=== PATIENT | female | born 1955 | race Caucasian/White ===

== ENCOUNTER 2017-11-27 11:36 | Inpatient (IN) | payer MEDICARE ==
[~2017-11-27] VITALS: Ht 154.9 cm; Wt 68.9 kg
[~2017-11-27 11:36] MED LIST: ADULT LOW DOSE81 MG PO; ADVAIR 250-501 EACH IH; ADVAIR 500-501 EACH INH; ADVAIR HFA 230M12 GM INH; ALBUTEROL2.5 MG/0.5 IH; AUGMENTIN 875875 M1 PO; AZITHROMYCIN 2250 MG PO; CALCIUM 500 +1 EAC5 PO; CEFDINIR300 MG PO; DETROL LA4 MG PO; DIOVAN HCT 1601 EACH PO; FISH OIL 1,4001 EACH PO; FLEET ENEMA118 ML RC; HYDROCODON-ACE1 EAC7 PO; HYDROCODONE-AP1 EAC6 PO; IBUPROFEN 800800 M1 PO; LEVAQUIN 750 M750 MG PO; LIPITOR20 MG PO; MACROBID 100 M100 M1 PO; MIRALAX255 GM PO; MUCINEX TA600 MG/TA1 PO; MULTIVITAMINS PO; NEXIUM40 MG PO; NYSTATIN 1100000 U/M SW&SWALLOW; ONDANSETRON HCL4 M2 PO; OXYBUTYNIN 5 MG5 M2 PO; Omega 3 PO; PAROXETINE HCL20 MG PO; POLYETHYLENE GLY PO; PREDNISONE 10 M10 MG PO; PREDNISONE10 MG PO; PROAIR HFA8.5 GM IH; PROAIR HFA8.5 GM INH; PROTONIX 20 MG20 M1 PO; SINGULAIR 10 MG10 M1 PO; SPIRIVA INH; VITAMIN E400 UNI7 PO; VITAMIN E800 UNIT; VITAMINC500 PO
[2017-11-27 11:40] VITALS: BP 172/73
[2017-11-27 12:21] LABS: HEMATOCRIT 42.1 % (37.0-47.0); HEMOGLOBIN 13.8 gm/dL (12.0-15.0); MCH 29.5 pg (26.0-34.0); MCHC 32.7 g/dL (28.0-37.0); MCV 90.3 fL (80.0-100.0); MPV 7.8 fl. (7.2-11.1); NUCLEATED RBCS 0 /100WBC; PLATELET COUNT* 261 thou/uL (150-400); RBC 4.66 mil/uL (4.20-5.00); RDW-CV 13.7 % (10.5-14.5); WBC 17.5 thou/uL (4.0-11.0)
[2017-11-27 12:31] LABS: APTT 24.1 Seconds (25.0-31.3); PROTIME 9.9 Seconds (9.20-11.50)
[2017-11-27 12:32] LABS: ANION GAP 8 mmol/L (7-16); BUN 14 mg/dL (7-18); CALCIUM 8.7 mg/dL (8.5-10.1); CHLORIDE 99 mmol/L (98-107); CO2 32 mmol/L (21-32); CREATININE 0.8 mg/dL (0.6-1.3); GLUCOSE 139 mg/dL (70-99); POTASSIUM 4.1 mmol/L (3.5-5.1); SODIUM 139 mmol/L (136-145)
[2017-11-27 12:46] LABS: ALBUMIN 3.8 g/dL (3.4-5.0); ALKALINE PHOSPHATASE 68 U/L (46-116); LIPASE 163 U/L (73-393); MAGNESIUM 2.1 mg/dL (1.8-2.4); NT-PRO BRAIN NAT PEPTIDE 250 pg/mL (<300); SGOT 24 U/L (15-37); SGPT 36 U/L (30-65); TOTAL BILIRUBIN 0.6 mg/dL (<0.1-1.0); TOTAL PROTEIN 6.9 g/dL (6.4-8.2); TROPONIN-I LEVEL <0.06 ng/mL (<0.06)
[2017-11-27 13:20] LABS: ABSOLUTE LYMPHOCYTES 0.9 thou/uL (0.8-5.3); ABSOLUTE NEUTROPHILS 16.6 thou/uL (1.6-8.1)
[2017-11-27 13:21] LABS: PLATELET ESTIMATE ADEQUATE
[2017-11-27 14:26] VITALS: BP 142/79
[2017-11-27 14:50] VITALS: BP 162/79
--- NOTE | 2017-11-27 16:30 | NUR ---
ASSUMED CARES OF PT FROM E.DWellington AT 1435. PT AMBULATED FROM COT TO BED. PT A&O X4, PT UP STEADY, STRONG GAIT, UP INDEPENDENTLY. O2 NC 5L, VSS ON 5L O2, PT OCC. HYPERTENSIVE, 162/79. HRRR PER AUSCULTATION, LUNG SOUNDS DIMINISHED TO CLEAR. LAST BM TODAY. SKIN INTACT, PERRLA, AFEBRILE. SCATTERED BRUISING AND SCARS. LEFT AC PATENT TO FLUSH. PT DENIES PAIN AT THIS TIME. PT LIVES ALONE IN OWN HOME, DAUGHTER AT BEDSIDE. REGULAR DIET. ADMITTED FOR COPD EXACERBATION, SOB AND BRONCHITITIS. PT WEARS O2 AT HOME AND HAS PERSONAL OXYGEN TANK FROM HOME WITH HER. BOWEL SOUNDS ACTIVE 4 QUANDRANTS, NO N/V/D REPORTED. NO COUGH REPORTED BY PT AND DAUGHTER. ABD SOFT, NON TENDER TO PALPATION. ADMISSION COMPLETED. MEDS STARTED. HOURLY ROUNDING TO CONTINUE. WILL CONTINUE TO MONITOR PT STATUS AND COMFORT.
--- NOTE | 2017-11-27 18:58 | NUR ---
REPORT TO BE GIVEN TO DIALYSIS TECH FOR CONTINUED CARES. PT REMAINS STABLE, SITTING IN BED, UP INDEPENDENT. PT TOLERATING IV ABT'S. HOURYLY ROUNDING COMPLETED. PT PROGRESSING TOWARDS GOAL.
[2017-11-27 20:40] VITALS: BP 116/77
[2017-11-28 03:50] LABS: HEMATOCRIT 39.9 % (37.0-47.0); HEMOGLOBIN 13.4 gm/dL (12.0-15.0); MCH 29.7 pg (26.0-34.0); MCHC 33.5 g/dL (28.0-37.0); MCV 88.9 fL (80.0-100.0); MPV 7.9 fl. (7.2-11.1); RBC 4.49 mil/uL (4.20-5.00); RDW-CV 13.6 % (10.5-14.5); WBC 8.8 thou/uL (4.0-11.0)
[2017-11-28 04:05] LABS: CREATININE 0.8 mg/dL (0.6-1.3); MAGNESIUM 2.3 mg/dL (1.8-2.4); POTASSIUM 4.8 mmol/L (3.5-5.1)
--- NOTE | 2017-11-28 06:53 | NUR ---
PT SLEPT ON AND OFF THIS SHIFT. ASSESSMENT DOCUMENTED. MEDS GIVEN PER E-MAR. IV PATENT. NO REPORTS OF PAIN OR NAUSEA. NO CONCERNS AT THIS TIME, WILL CONTINUE WITH PLAN OF CARE.
[2017-11-28 08:18] VITALS: BP 120/81
--- NOTE | 2017-11-28 12:04 | EKG ---
[place] [address] ELECTROCARDIOGRAM REPORT Name: PRICILA YOUNG Room: [address] IN ..#: [id number] Admission: 11/27/17 Attend Phys: Elian Vazquez, Discharge: Date of : 55 Report #: [id number] THIS REPORT FOR: //name// [facility] ED Test Date: 2017-11-27 Test Time: 11:44:05 Pat Name: PRICILA YOUNG Department: Room: Gender: F Director Intelligence Analysis Programs: [place] : 1955 Requested By: Bhargav Ruby Order Number: [id number] MD: Zeyad Martel Measurements Intervals [place] Rate: 97 P: 100 NE: 128 QRS: 82 QRSD: 95 T: -1 QT: 335 QTc: 426 Interpretive Statements Pacemaker spikes or artifacts Sinus rhythm Probable left atrial enlargement Borderline right axis deviation Minimal ST depression, inferior leads Baseline wander in lead(s) V1 Compared to ECG 02/12/2017 11:53:20 ST (T wave) deviation now present Sinus tachycardia no longer present Early repolarization no longer present Electronically Signed On 11-28-2017 12:04:17 CDT by Zeyad Martel [email or web address] <ELECTRONICALLY SIGNED> By: Guicho Martel MD, [facility] 11/28/17 1204 1144 1144 Guicho Martel MD, [facility] /EPI
--- NOTE | 2017-11-28 14:23 | NUR ---
ASSUMED CARES OF PT AT 0700. PT IN BED, BED IN LOW LOCKED POSITION, CALL BUTTON AND PERSONAL ITEMS IN PT REACH. PT UP INDEPENDENTLY, STRONG/STURDY GAIT. A&O X4, HRRR PER AUSCULTATION, VSS ON 5L O2 NC, AFEBRILE, PERRLA, SKIN INTACT, PT COOPERATIVE, PLEASANT, TAKES MED WELL PO. LAST BM 11/26/17. PT FROM HOME WHERE SHE LIVES ALONE AND USES O2 AT HOME 3-4 LITERS. PULSES RADIAL AND PEDAL WNL. NO EDEMA NOTED. LUNG SOUNDS DIMINISHED VIA AUSCULTATION. LEFT AC IV PATENT WITH ABT'S INFUSING, TOLERATED, NO AVR. PT DENIES PAIN AT THIS TIME DURING THIS SHIFT. ABD SOFT/NON TENDER TO PALPATION, PT DENIES N/V/D. GOOD APPETITE AT MEALS. PT PROGRESSING TOWARDS GOAL. HOURLY ROUNDING CONTINUES. WILL CONTINUE TO MONITOR PT PROGRESS AND STATUS.
[2017-11-28 15:51] VITALS: BP 149/82
--- NOTE | 2017-11-28 19:49 | NUR ---
REPORT TO WAFER FAB TECHNICIAN FOR CONTINUED CARES. PT PROGRESSING TOWARDS GOAL. HOURLY ROUNDING COMPLETED. PT STABLE ON 5L O2 NC. PT UP INDEPENDENTLY. PT VERY COOPERATIVE AND PLEASANT, GOOD ATTITUDE. LUNGS STILL TIGHT/DIMINISHED PER AUSCULTATION. IV IN LEFT AC PATENT TO FLUSH. IV ABT TOLERATED, NO AVR. PT PRESENTLY IN BED WATCHING TV.
[2017-11-28 20:15] VITALS: BP 152/81
[2017-11-29 03:58] LABS: HEMATOCRIT 40.7 % (37.0-47.0); HEMOGLOBIN 13.3 gm/dL (12.0-15.0); MCH 29.4 pg (26.0-34.0); MCHC 32.7 g/dL (28.0-37.0); MCV 89.7 fL (80.0-100.0); MPV 7.7 fl. (7.2-11.1); RBC 4.54 mil/uL (4.20-5.00); RDW-CV 13.8 % (10.5-14.5); WBC 14.4 thou/uL (4.0-11.0)
[2017-11-29 04:20] LABS: CALCIUM 9.1 mg/dL (8.5-10.1); CREATININE 0.9 mg/dL (0.6-1.3); MAGNESIUM 2.3 mg/dL (1.8-2.4); POTASSIUM 5.3 mmol/L (3.5-5.1)
--- NOTE | 2017-11-29 05:51 | NUR ---
PATIENT SLEPT MOST OF THE NIGHT. IV REMAINS SALINE LOCKED. IV ANTIBITOICS WERE GIVEN ORDERED. PATIENT REMAIN ON OXYGEN AT 4L PER NASAL CANNULA. PATIENT HAD NO COMPLAINTS OF PAIN. WILL CONTINUE TO MONITOR.
[2017-11-29 09:32] VITALS: BP 147/82
--- NOTE | 2017-11-29 13:38 | NUR ---
CM SPOKE TO THE PATIENT TO DISCUSS HOME SITUAION, DISCHARGE PLANNING, AND TO INFORM OF THE ROLE OF CM. PATIENT ALERT ORIENTED AND INDEPENDENT WITH ADL'S. PATIENT RESIDES AT HOME ALONE. PATIENT USES CONTINUOUS O2 AND A NEBULIZER AT HOME. PATIENT OWNS A WALKER, BUT DOES NOT USE IT. PATIENT USES A SCOOTER IN THE COMMUNITY. EVELYNE HAS NO HX OF OR SNF. CM WILL REMAIN AVAILABLE TO KELSY AND FOLLOW NEEDED.
[2017-11-29 16:00] VITALS: BP 145/84
--- NOTE | 2017-11-29 17:19 | NUR ---
ASSUMED CARE OF PATIENT AFTER MORNING REPORT. ALERT AND ORIENTED X4. ASSESSMENT COMPLETED AND CHARTED. VSS ON 4 LITERS 02. PATIENT HAS HAD NO COMPLAINTS OF PAIN OR NAUSEA THIS SHIFT. SOME COMPLAINTS OF SOA UPON EXERTION BUT RESOLVES QUICKLY WITH REST. PATIENT HAD IV SOLUMEDROL AND ANTIBIOTICS THIS MORNING. IV WAS LEAKING AND ATTEMPT AT NEW ACCESS FAILED. DR WHITMAN CHANGED ORDERS TO PO AND IV ACCESS WAS LEFT OUT. PATIENT RESTING COMFORTABLY IN BED AT THIS TIME. HOURLY ROUNDING MAINTAINED, CALL LIGHT IS WITHIN REACH AND NURSING WILL CONTINUE TO MONITOR.
[2017-11-29 20:00] VITALS: BP 129/93
[2017-11-30 00:14] VITALS: BP 125/89
[2017-11-30 04:17] LABS: ABSOLUTE NEUTROPHILS 8.6 thou/uL (1.6-8.1); BASOPHILS 0.1 %; EOSINOPHILS 0.1 %; HEMATOCRIT 40.5 % (37.0-47.0); HEMOGLOBIN 13.2 gm/dL (12.0-15.0); LYMPHOCYTES 17.3 %; MCH 29.3 pg (26.0-34.0); MCHC 32.6 g/dL (28.0-37.0); MCV 90.1 fL (80.0-100.0); MONOCYTES 8.5 %; MPV 7.8 fl. (7.2-11.1); NUCLEATED RBCS 0 /100WBC; PLATELET COUNT* 247 thou/uL (150-400); RDW-CV 13.9 % (10.5-14.5); WBC 11.7 thou/uL (4.0-11.0)
[2017-11-30 04:34] LABS: CALCIUM 8.8 mg/dL (8.5-10.1); CREATININE 0.8 mg/dL (0.6-1.3); POTASSIUM 4.8 mmol/L (3.5-5.1)
--- NOTE | 2017-11-30 05:18 | NUR ---
ASSUMED CARE OF PT AT 1900 ALERT AND ORIENTED X4 VS AND ASSESSMENT STABLE. PT VOICED NO COMPLAINTS AND SLEPT THROUGH THE NIGHT WILL CONTINUE PLAN OF CARE.
[2017-11-30 08:00] VITALS: BP 133/79
[2017-11-30 09:58] VITALS: BP 133/79
[2017-11-30] MEDS ORDERED: PROTONIX40 M1 PO (10:23)
[2017-11-30 11:33] VITALS: BP 133/79
--- NOTE | 2017-11-30 11:45 | NUR ---
RECEIVED REPORT FROM LISANDRO URIAS. ASSESSMENT CHARTED. AFEBRILE. PT WILL GO HOME TODAY. MEDS GIVEN. DISCHARGE INSTRUCTIONS GIVEN. SCRIPTS GIVEN. ALL QUESTIONS ANSWRED.
[2017-11-30 12:57] VITALS: BP 133/79
--- NOTE | 2017-11-30 12:58 | NUR ---
PT LEFT UNIT AT 1258 VIA WHEELCHAIR WITH NURSE MARI AND DAUGHTER.
== END 2017-11-30 12:45 | disposition home or self-care (01) | DRG 177 ==
LOC: M.ERS 11:36 → M.TBA-ER 12:54 → M.ORTHSURG 12:54
PROVIDERS: Family Medicine; Internal Medicine; ADMIT Family Medicine
DX: J15.6 Pneumonia due to other Gram-negative bacteria (principal); J96.01 Acute respiratory failure with hypoxia; J44.1 Chronic obstructive pulmonary disease with (acute) exacerbation; J44.0 Chronic obstructive pulmonary disease with (acute) lower respiratory infection; R65.10 Systemic inflammatory response syndrome (SIRS) of non-infectious origin without acute organ dysfunction; D72.829 Elevated white blood cell count, unspecified; I10 Essential (primary) hypertension; F41.9 Anxiety disorder, unspecified; Z98.51 Tubal ligation status; Z90.49 Acquired absence of other specified parts of digestive tract; Z79.899 Other long term (current) drug therapy; Z79.82 Long term (current) use of aspirin; Z99.81 Dependence on supplemental oxygen; Z88.2 Allergy status to sulfonamides; Z88.8 Allergy status to other drugs, medicaments and biological substances; Z87.891 Personal history of nicotine dependence

== ENCOUNTER 2018-01-19 09:32 | Inpatient (IN) | payer MEDICARE ==
[~2018-01-19] VITALS: Ht 157.5 cm; Wt 67.1 kg
[~2018-01-19 09:32] MED LIST changes: +PROTONIX40 M1 PO
[2018-01-19 09:34] VITALS: BP 133/70
[2018-01-19] MEDS ORDERED: TUMS PO (09:46)
[2018-01-19] MEDS ORDERED: STOOL SOFTENER1 EAC2 PO (09:47)
[2018-01-19] MEDS ORDERED: VIT C-ROSE HIP500 MG PO (09:47)
[2018-01-19] MEDS ORDERED: OXYGEN MISCELL (09:47)
[2018-01-19 09:50] LABS: HEMOGLOBIN 14.9 gm/dL (12.0-15.0); MCH 30.1 pg (26.0-34.0); MCHC 33.2 g/dL (28.0-37.0); MCV 90.7 fL (80.0-100.0); MPV 8.5 fl. (7.2-11.1); NUCLEATED RBCS 0 /100WBC; PLATELET COUNT* 290 thou/uL (150-400); RBC 4.97 mil/uL (4.20-5.00); RDW-CV 13.9 % (10.5-14.5); WBC 24.2 thou/uL (4.0-11.0)
[2018-01-19 10:07] LABS: ANION GAP 7 mmol/L (7-16); BUN 11 mg/dL (7-18); CALCIUM 9.2 mg/dL (8.5-10.1); CHLORIDE 98 mmol/L (98-107); CO2 32 mmol/L (21-32); CREATININE 0.8 mg/dL (0.6-1.3); GLUCOSE 142 mg/dL (70-99); POTASSIUM 3.6 mmol/L (3.5-5.1); SODIUM 137 mmol/L (136-145)
[2018-01-19 10:24] LABS: ABSOLUTE LYMPHOCYTES 0.7 thou/uL (0.8-5.3); ABSOLUTE MONOCYTES 2.4 thou/uL (0.0-1.2); ABSOLUTE NEUTROPHILS 21.1 thou/uL (1.6-8.1); ALBUMIN 3.9 g/dL (3.4-5.0); ALKALINE PHOSPHATASE 68 U/L (46-116); LIPASE 76 U/L (73-393); MAGNESIUM 1.9 mg/dL (1.8-2.4); NT-PRO BRAIN NAT PEPTIDE 258 pg/mL (<300); SGOT 25 U/L (15-37); SGPT 30 U/L (30-65); TOTAL BILIRUBIN 1.6 mg/dL (<0.1-1.0); TOTAL PROTEIN 7.5 g/dL (6.4-8.2); TROPONIN-I LEVEL <0.06 ng/mL (<0.06)
[2018-01-19 10:25] LABS: PLATELET ESTIMATE ADEQUATE
[2018-01-19 11:22] LABS: URINE BLOOD NEGATIVE (Negative); URINE CLARITY CLEAR; URINE COLOR YELLOW; URINE GLUCOSE-RANDOM NEGATIVE (Negative); URINE KETONES 2+ (Negative); URINE LEUKOCYTES-REFLEX 1+ (Negative); URINE NITRITE-REFLEX NEGATIVE (Negative); URINE PROTEIN TRACE (Negative)
[2018-01-19 11:24] LABS: URINE BILIRUBIN 1+ (Negative)
[2018-01-19 11:25] VITALS: BP 127/49
[2018-01-19 11:29] LABS: ICTOTEST (BILI CONFIRMATORY) Negative (Negative)
[2018-01-19 11:31] LABS: SQUAMOUS 4-10 Moderate /LPF (0-3); URINE RBC 3-10 Few /HPF (0-2); URINE WBC-REFLEX None Seen /HPF (0-5)
[2018-01-19 11:32] LABS: BACTERIA-REFLEX 1-9 Few /HPF (None Seen); CASTS None Seen /LPF (None Seen); CRYSTALS None Seen /LPF (None Seen); MUCUS >6 Heavy strn/LPF (None Seen)
[2018-01-19 12:00] VITALS: BP 118/66
[2018-01-19 16:03] VITALS: BP 102/53
--- NOTE | 2018-01-19 17:33 | EKG ---
[place] [address] ELECTROCARDIOGRAM REPORT Name: PRICILA YOUNG Room: [address] IN .R.#: [id number] Admission: 01/19/18 Attend Phys: Sussy Swain MD Discharge: Date of : 55 Report #: [id number] THIS REPORT FOR: //name// [facility] ED Test Date: 2018-01-19 Test Time: 09:37:51 Pat Name: PRICILA YOUNG Department: Room: Gender: Irish Moss Gatherer: Abiel GAMBINO : 1955 Requested By: Kirby Ashby Order Number: [id number] MD: Ortiz Melendrez Measurements Intervals [place] Rate: 111 P: 75 SC: 129 QRS: 85 QRSD: 93 T: 147 QT: 399 QTc: 542 Interpretive Statements Sinus tachycardia Probable left atrial enlargement Borderline right axis deviation Borderline repolarization abnormality Prolonged QT interval Baseline wander in lead(s) I,III,aVL Compared to ECG 11/27/2017 11:44:05 Prolonged QT interval now present Sinus rhythm no longer present Electronically Signed On 01-19-2018 17:32:55 CDT by rOtiz Melendrez [email or web address] <ELECTRONICALLY SIGNED> By: Ortiz Melendrez MD, FAC 01/19/18 1732 0937 0937 Ortiz Melendrez MD, FAC /EPI
--- NOTE | 2018-01-19 18:39 | NUR ---
RECEIVED PT FROM ER 1130. SHE IS ALERT AND ORIENTED X4. VSS. ADMISSION ASSESSMENT AND HISTORY COMPLETED. HOME MEICATIONS RECONCILED, ORDERED BY PHYSICIAN AND GIVEN PER MAR. O2 SAT 92% ON 6L NC. STATES SHE WEARS 4L NC AT HOME. SHE IS UP AD GENEVA IN HER ROOM WITH BATHROOM PRIVILEDGES. EXTENSION TUBING CONNECTED TO O2. HER GAIT IS STEADY AND IS NOT A FALL RISK. HOURLY ROUNDING CHARTED. CALL LIGHT WITHIN REACH. WILL CONTINUE TO MONITOR.
[2018-01-19 20:00] VITALS: BP 116/78
[2018-01-20] VITALS: BP 100/59
[2018-01-20 04:00] VITALS: BP 114/74
[2018-01-20 04:52] LABS: HEMATOCRIT 41.8 % (37.0-47.0); HEMOGLOBIN 13.7 gm/dL (12.0-15.0); MCH 29.6 pg (26.0-34.0); MCHC 32.9 g/dL (28.0-37.0); MPV 8.3 fl. (7.2-11.1); RBC 4.64 mil/uL (4.20-5.00); RDW-CV 13.8 % (10.5-14.5)
[2018-01-20 05:14] LABS: CREATININE 0.8 mg/dL (0.6-1.3); POTASSIUM 3.9 mmol/L (3.5-5.1)
--- NOTE | 2018-01-20 08:15 | NUR ---
ASSUMED PT. CARE AND RECEIVED REPORT AT 0730. PT A/OX4, VSS, MONITOR ON TRACING SR. PT. DENIES CURRENT PAIN. STATES BREATHING IS SLIGHTLY BETTER THIS MORNING. ON 4LNC @ 90-93%. FULL ASSESSMENT COMPLETED, REFER TO CHARTING. CALL LIGHT IN REACH, WILL CONTINUE WITH PLAN OF CARE.
[2018-01-20 08:22] VITALS: BP 120/68
--- NOTE | 2018-01-20 11:30 | NUR ---
PT.RESTING IN BED, VISITING WITH VISITOR. SHE GAVE PERMISSION FOR CM TO SPEAK IN FRONT OF VISITOR. PT.SAID SHE LIVE MASOUD. HER DAUGHTER IS SUPPORTIVE. PT.HAS O2 AND NEBULIZER AT HOME THROUGH [place]. SHE ALSO HAS A SCOOTER IF SHE IS GOING TO HAVE TO WALK LONG DISTANCES AND ALSO A WALKER BUT NEVER USES IT. SHE IS INDEPENDENT WITH EVERYTHING. DOES NOT FEEL SHE WILL HAVE ANY DISCHARGE NEEDS.
--- NOTE | 2018-01-20 18:37 | NUR ---
PT. HAS BEEN STABLE THROUGH OUT SHIFT AND PROGRESSING TOWARDS GOALS. HEART MONITOR REMOVED AND PT.NOW MED/SURG STATUS. CONTINUES ON 4L NC, TOLERATING WELL. NO COMPLAINTS OF PAIN. MULTIPLE VISITORS THROUGH OUT THE DAY. HOURLY ROUNDING COMPLETED FOR PT. SAFETY.
[2018-01-20 18:40] VITALS: BP 117/63
[2018-01-20 19:27] LABS: URINE BILIRUBIN NEGATIVE (Negative); URINE BLOOD NEGATIVE (Negative); URINE CLARITY CLEAR; URINE COLOR YELLOW; URINE GLUCOSE-RANDOM NEGATIVE (Negative); URINE KETONES NEGATIVE (Negative); URINE LEUKOCYTES-REFLEX NEGATIVE (Negative); URINE NITRITE-REFLEX NEGATIVE (Negative); URINE PROTEIN NEGATIVE (Negative); URINE SPECIFIC GRAVITY 1.025 (1.005-1.030)
[2018-01-20 19:45] VITALS: BP 164/90
--- NOTE | 2018-01-20 19:45 | NUR ---
RECEIVED REPORT AND ASSUMED CARE OF PT, ASSESSMENT COMPLETED. O2 INCREASED PER RT TO 5L/NC FOR O2 SAT NOW OF 91%. HOB ELEVATED, PT TALKING. INDEPENDENT BRP WITH STEADY GAIT AND O2 ON. WILL CONT TO MONITOR AND ASSIST NEEDED.
[2018-01-20 23:30] VITALS: BP 115/64
[2018-01-21 03:30] VITALS: BP 111/53
[2018-01-21 04:46] LABS: ABSOLUTE LYMPHOCYTES 0.6 thou/uL (0.8-5.3); ABSOLUTE MONOCYTES 0.6 thou/uL (0.0-1.2); ABSOLUTE NEUTROPHILS 15.5 thou/uL (1.6-8.1); BASOPHILS 0.1 %; HEMATOCRIT 40.5 % (37.0-47.0); HEMOGLOBIN 13.4 gm/dL (12.0-15.0); LYMPHOCYTES 3.6 %; MCH 29.7 pg (26.0-34.0); MCV 89.9 fL (80.0-100.0); MONOCYTES 3.5 %; MPV 8.3 fl. (7.2-11.1); NUCLEATED RBCS 0 /100WBC; PLATELET COUNT* 280 thou/uL (150-400); POLYS 92.8 %; RBC 4.51 mil/uL (4.20-5.00); RDW-CV 13.8 % (10.5-14.5); WBC 16.6 thou/uL (4.0-11.0)
[2018-01-21 04:53] LABS: CALCIUM 9.1 mg/dL (8.5-10.1); CREATININE 0.8 mg/dL (0.6-1.3); POTASSIUM 3.7 mmol/L (3.5-5.1)
--- NOTE | 2018-01-21 07:24 | NUR ---
SLEPT WELL TONIGHT. NO CHANGE IN ASSESSMENT. DOES BECOME SOB WITH ACTIVITY. O2 ON AT 5L/NC. HS GOALS OF REST AND SAFETY ACHIEVED. HOURLY ROUNDING OBSERVED.
[2018-01-21 08:30] VITALS: BP 124/58
--- NOTE | 2018-01-21 08:30 | NUR ---
ASSUMED PT. CARE AND RECEIVED REPORT AT 0730. PT A/OX4, VSS, PT. DENIES CURRENT PAIN. REMAINS SOB WITH ACTIVITY. ON 5L NC @ 93%. FULL ASSESSMENT COMPLETED, REFER TO CHARTING. PT. REPORTS "ROUGH NIGHT" WITH HAVING TO INCREASE OXYGEN AND NOT SLEEPING WELL. CALL LIGHT IN REACH, WILL CONTINUE WITH PLAN OF CARE.
[2018-01-21 15:27] VITALS: BP 123/76
[2018-01-21 20:00] VITALS: BP 137/93
[2018-01-22] VITALS: BP 125/61
[2018-01-22 03:52] LABS: HEMATOCRIT 39.5 % (37.0-47.0); HEMOGLOBIN 13.2 gm/dL (12.0-15.0); MCHC 33.4 g/dL (28.0-37.0); MCV 89.9 fL (80.0-100.0); MPV 8.3 fl. (7.2-11.1); RBC 4.4 mil/uL (4.20-5.00); RDW-CV 14.1 % (10.5-14.5); WBC 10.4 thou/uL (4.0-11.0)
[2018-01-22 04:18] LABS: CALCIUM 8.9 mg/dL (8.5-10.1); CREATININE 0.8 mg/dL (0.6-1.3); MAGNESIUM 2.3 mg/dL (1.8-2.4); POTASSIUM 4.6 mmol/L (3.5-5.1)
--- NOTE | 2018-01-22 05:41 | NUR ---
ASSUMED PT CARE AT 1930. ASSESSMENT COMPLETED CHARTED. NO C/O PAIN OR DISCOMFORT. ABLE TO MAKE NEEDS KNOWN. RESTING IN BED ALL NIGHT. WILL CONTINUE TO MONITOR.
[2018-01-22 07:58] VITALS: BP 139/81
--- NOTE | 2018-01-22 10:26 | NUR ---
ASSUMED CARE OF PT THIS AM AROUND 0715- M/S STATUS MAINTAINED- UPON ASSESSMENT PT NOTED TO BE RESTING IN BED WATCHING TV- PT A&O X4- CONTINENT OF BOWEL AND BLADDER- UP AD-GENEVA WITH STEADY GAIT NOTED- LEFT UPPER AND LOWER LOBES WITH EX WHEEZING NOTED RIGHT UPPER CTA, RIGHT LOWER DIMINISHED- BR TX PER RT PRESCIBED THIS AM- SOA WITH EXERTION NOTED- VSS, O2 SAT 98% ON 5L VIA NC- ABDOMEN SOFT/ROUND/NON-TENDER, BS X4 QUADS- PT REPORTS LAST BM OVEER NIGHT- GOOD PO INTAKE NOTED WITH BREAKFAST THIS AM- IV NOTED TO LEFT AC INTACT AND SL, IV ABT GIVEN THIS AM, NO AVERSE REACTIONS TO NOTE- PT DENIES ANY C/O PAIN/DISCOMFORT THIS AM- CALL LIGHT AND PERSONAL BELONGINGS WITH IN REACH- HOURLY ROUNDS IN PLACE R/T SAFETY/NEEDS- ALL NEEDS MET AT THIS TIME- WCTM
[2018-01-22 10:41] LABS: BE 4.8 mmol/L (-2 to +3); HCO3 30.1 mmol/L (22.0-26.0); PO2 73.4 mmHg (75.0-100.0); pH 7.425 (7.340-7.450)
--- NOTE | 2018-01-22 12:09 | NUR ---
If Pt does not have a portable tank to dc home with, and family is unable to bring one, contact Pt's o2 provider, Sebastián Rocha at [phone], f:[phone]
[2018-01-22 15:47] VITALS: BP 142/77
--- NOTE | 2018-01-22 16:27 | NUR ---
PT CURRENLTY RESTING IN BED, WATCHING TV; DAUGHTER AT SIDE VISITING- M/S STATUS IN PLACE INDICATED-IV TO LEFT AC INTACT AND SL, FLUSHING WELL- O2 CONTINUED INDICATED- PT EXPRESSED WISHES TO BE D/C'D TO HOME TODAY- UPDATED ON PT WISHES, WITH INSTRUCTIONS GIVEN TO WALK PT FOR 6 MIN WITH HOME O2 OF 4L- PT ABLE TO WALK FROM ROOM TO NURSING DESK WITH NOED DYSPNEA, O2 SAT NOTED TO DIP TO MID 70'S WITH SLOW RECOVERLY IN TO LOW 80;S WITH 7L NC APPLIED- PT TAKEN BACK TO ROOM AND ALLOWED TO REST WITH O2 SAT TO 90'S WITH 5L AT REST- PT AND PT DAUGHTER STATES THIS TO BE HER NORM/BASELINE- UPDATED ON RESULTS WITH COMMUNICATION RECIEVED THAT PT SHOULD STAY ANOTHER DAY- PT UPDATED ON PHYSICIANS WISHES, AND OKAY WITH STAYING AT THIS TIME- [place]STATIN SWISH AND SWALLOW ORDERS OBTAINED THIS SHIFT AND GIVEN FOR NOTED WITH PATCHES AND HX OF THRUSH PER - GOOD PO INTAKE NOTED THIS SHIFT WITH MEALS- DENIES ANY C/O PAIN/DISCOMFORT AT THIS TIME- MAKES NEEDS KNOWN- ALL NEEDS MET AT THIS TIME-WCTM
[2018-01-22 20:00] VITALS: BP 147/84
[2018-01-23] VITALS: BP 131/65
--- NOTE | 2018-01-23 01:48 | NUR ---
ASSUMED PT CARE AT 1930. ASSESSMENT COMPLETED CHARTED. NO C/O PAIN OR DISCOMFORT. ABLE TO MAKE NEEDS KNOWN, SOA ON EXCERTION, SLIGHTLY UPSET THAT SHE WASNT ABLE TO GO HOME YESTERDAY AND SAYS THAT SHE WILL SIGN HERSELF OUT TO DAY IF THE DOCTOR DOESNT RELEASE HER TODAY. PT IS PLEASENT WITH STAFF AND IS JUST READY TO GO HOME AND FEELS BETTER. WILL CONTINUE TO MONITOR.
[2018-01-23 05:39] LABS: HEMOGLOBIN 13.4 gm/dL (12.0-15.0); MCH 29.9 pg (26.0-34.0); MCHC 33.5 g/dL (28.0-37.0); MCV 89.3 fL (80.0-100.0); MPV 8.3 fl. (7.2-11.1); RBC 4.48 mil/uL (4.20-5.00); RDW-CV 13.7 % (10.5-14.5); WBC 6.9 thou/uL (4.0-11.0)
[2018-01-23 05:42] LABS: CALCIUM 9.3 mg/dL (8.5-10.1); CREATININE 0.7 mg/dL (0.6-1.3); MAGNESIUM 2.5 mg/dL (1.8-2.4); POTASSIUM 4.3 mmol/L (3.5-5.1)
[2018-01-23 07:41] VITALS: BP 129/69
--- NOTE | 2018-01-23 08:26 | NUR ---
ASSUMED CARE OF PT THIS AM AROUND 0715- M/S STATUS IN PLACE INDICATED- UPON ASSESSMENT PT NOTED TO BE RESTING IN BED, WATCHING TV- PT A&O X4- CONTINENT OF BOWEL AND BLADDER, STRESS INCONTINENTS AT TIMES- UP AD-GENEVA WITH STEADY GAIT NOTED- DIMINSHED LUNG SOUNDS, DYSPNEA NOTED- VSS, O2 SAT 95% ON 4.5L- ABDOMEN SOFT/ROUND/NON-TENDER, BS X4- PT REPORTS TO HAVE HAD BM OVER NIGHT-IV NOTED TO LEFT AC INTACT, IV ABT GIVEN THIS AM PRESCIBED- SWISH AND SWALLOW THIS SHIFT PRESCIBED- GOOD PO INTAKE NOTED- PT EXPRESSES WISHES TO GO HOME TODAY- DENIES ANY C/O PAIN/DISCOMFORT AT THIS TIME- CALL LIGHT AND PERSONAL BELONGINGS WITH IN REACH-MAKES NEEDS KNOWN- ALL NEEDS MET AT THIS TIME-WCTM
[2018-01-23 09:05] VITALS: BP 129/69
[2018-01-23] MEDS ORDERED: NYSTATIN100000 UNI PO (12:08)
[2018-01-23 15:33] VITALS: BP 151/87
--- NOTE | 2018-01-23 17:20 | NUR ---
PT ED RESTING IN BED, WATCHING TV; DAUGHTER AT SIDE VISITING- M/S STATUS IN PLACE INDICATED- IV TO LEFT AC INTACT AND SL- D/C ON HOLD AT THIS TIME PER R/T NEEDED HIGH FLOW O2 AT HOME AT TIME OF D/C- PT NOTED TO NEED UP TO 8L HF WITH ACTIVITY PER RT THIS SHIFT WITH NOTED DYSPNEA- STAT VQ SCAN ORDERED PER WELL PULMONARY CONSULT R/T SEVERE COPD WIT INCREASED REQUIREMENT WITH O2- VQ SCAN IS PLANNED TO BE COMPLETED PER RADIOLOGY SOMETIME AFTER DOSE DELIVERY AROUND 1900 OR AFTER- PT DENIES ANY C/O PAIN/DISCOMFORT- GOOD PO INTAKE NOTED- MAKES NEEDS KNOWN- ALL NEEDS MET AT THIS TIME-WCTM
[2018-01-23 20:00] VITALS: BP 146/88
[2018-01-24 00:36] VITALS: BP 133/77
--- NOTE | 2018-01-24 00:47 | NUR ---
ASSUMED PT CARE AT 1930. ASSESSMENT COMPLETED CHARTED. NO C/O PAIN OR DISCOMFORT. UPSET ABOUT BEING UNABLE TO GO HOME YESTERDAY BUT IS UNDERSTANDING AND IS COOPERATIVE WITH CARES. UP AD GENEVA, ABLE TO MAKE NEEDS KNOWN. O2 AT 4.5 l TO KEEP OXYGEN LEVELS ABOVE 92%. WILL CONTINUE TO MONITOR.
[2018-01-24 04:03] LABS: HEMATOCRIT 38.4 % (37.0-47.0); MCH 30.1 pg (26.0-34.0); MCHC 33.8 g/dL (28.0-37.0); MCV 88.9 fL (80.0-100.0); RBC 4.32 mil/uL (4.20-5.00); RDW-CV 13.6 % (10.5-14.5); WBC 8.4 thou/uL (4.0-11.0)
[2018-01-24 04:27] LABS: CALCIUM 8.6 mg/dL (8.5-10.1); CREATININE 0.7 mg/dL (0.6-1.3); MAGNESIUM 2.2 mg/dL (1.8-2.4); POTASSIUM 4.7 mmol/L (3.5-5.1)
[2018-01-24 04:55] VITALS: BP 106/58
[2018-01-24 08:00] VITALS: BP 145/86
[2018-01-24] MEDS ORDERED: CEFDINIR300 MG PO (08:36)
[2018-01-24] MEDS ORDERED: AZITHROMYCIN 2250 MG PO (08:36)
[2018-01-24] MEDS ORDERED: PREDNISONE 10 M10 MG PO (08:36)
--- NOTE | 2018-01-24 09:07 | NUR ---
Consult received to arrange higher flow concentrator for home use. GREG spoke with Tejas at [facility], faxed updated ex ox, facesheet and order. Updated Pt. Plan dc today, if o2 is arranged for home.
[2018-01-24 15:20] VITALS: BP 129/69
[2018-01-24 15:24] VITALS: BP 157/74
--- NOTE | 2018-01-24 17:54 | NUR ---
I ASSUMED CARE OF THE PATIENT AT 0700. SHE IS ALERT AND ORIENTED X4 AND IS UP AD GENEVA. HOURLY ROUNDING WAS COMPLETED AND PATIENT NEEDS ARE MET. PAIN IS DENIED. BED IS IN THE LOW LOCKED POSITION AND CALL LIGHT IS IN REACH. PATIENT IS MED/SURG STATUS. KAVITA ORDERED A CONDENSOR THAT CAN GO UPTO 10 LITERS FOR ACTIVITY AT HOME. THE PULMONARY COMPANY CONFIRMED DELIVERY WOULD BE TODAY AROUND 1600. PATIENT WAS DISCHARGED TO HOME WITH DAUGHTER AND SCRIPTS AT 1635 IN A PRIVATE VEHICLE. SHE HAS PROGRESSED TOWARDS GOALS.
--- NOTE | 2018-01-25 10:10 | CON ---
[address] [address] CONSULTATION Name: PRICILA YOUNG Room: [address] IN M.R.#: [id number] Admission: 01/19/18 Attend Phys: Sussy Swain MD Discharge: 01/24/18 Date of : 55 Report #: [id number] THIS REPORT FOR: //name// CC: Gerardo Cardonablatt LOCATION: She is located in room 206. INDICATION FOR CONSULTATION: Severe COPD, hypoxemia. HISTORY OF PRESENT ILLNESS: The patient is a 62-year-old female, prior smoker who I followed in the office for the last 10 years. The patient has known severe COPD and has been oxygen dependent on 4 liters. She is not steroid dependent. Her baseline FEV1 is 0.4 liters with an FVC of about 1.5 liters. She has done relatively well with this. She thinks she just either got caught a cold or was exposed to her daughter who was recently diagnosed with bronchitis. The patient has had no cough, no sputum, just more wheezing and more short of breath when she was oxygenating on 4 liters. She seemed to desaturate. Normally, she turns O2 up to 5 liters at home with exertion. She is having to go up to 6 liters, although she was doing a 6-minute walk though. She has no chest pain or peripheral edema. V/Q scan was negative. She denies any esophageal reflux or sinus drainage. I was asked to see her. She was tentatively scheduled for discharge home today. PAST MEDICAL HISTORY: Medical problems include severe COPD, O2 dependent, not steroid dependent. She has had previous left upper lobe pneumonias and she has a significant pulmonary artery enlargement and cor pulmonale. She has had respiratory failure, been on BiPAP in the past, has not been intubated though. ALLERGIES: SHE HAS ALLERGIES OR INTOLERANCE TO BACTRIM IN 08/2015, WHICH GAVE HER A RASH. MEDICATIONS: Her home meds included Diovan, hydrochlorothiazide 160/12.5 one tablet daily, paroxetine or Paxil 20 mg daily, aspirin 81 mg daily, atorvastatin 20 mg at bedtime, pantoprazole 40 mg at bedtime, senna stool softener one tablet daily, albuterol nebulizers 4 times a day followed by tiotropium or Spiriva 1 puff daily, montelukast 10 mg every evening and also she was on Symbicort 160/4.5 two puffs b.i.d., Solu-Medrol dosed to 62.5 mg every 8 hours at this time. She will be tapered down to 40 mg a day for 3 days, 30 mg a day for 3 days, 20 mg a day for 3 days, and 10 mg a day for 3 days upon discharge. She was on azithromycin and also ceftriaxone also as an inpatient. PAST MEDICAL HISTORY AND SURGICAL HISTORY: She has had hypertension, anxiety, COPD and she has had a bladder sling suspension surgery, overactive bladder [place] [address] CONSULTATION Name: PRICILA YOUNG Room: [address] IN [facility]#: [id number] Admission: 01/19/18 Attend Phys: Sussy Swain MD Discharge: 01/24/18 Date of : 55 Report #: [id number] FAMILY HISTORY: Heart disease, mother and grandmother both had COPD, also breast cancer. SOCIAL HISTORY: She lives by herself. She has several children and grandchildren, prior 60-[id number] history of smoking, quit about 2-3 years ago, was 1 to 2 packs a day. Denies any alcohol or illicit drug use. REVIEW OF SYSTEMS: A 14-point review of systems reviewed and negative except for pertinent positives noted in HPI. PHYSICAL EXAMINATION: GENERAL: Always pleasant 62-year-old female, sitting up in a chair. VITAL SIGNS: Blood pressure is 145/86, heart rate 88, respirations 16, temperature is 36.6 degrees, saturation on 4 liters is 94%. She is 5 feet 3 inches tall, weight 68 kilograms or 148 pounds, which is baseline. BMI is 27. HEENT: Unremarkable. NECK: Supple without nodes. She has some mild increased jugular venous pressure. Her sternocleidomastoid muscles are hypertrophied. CHEST: Shows markedly diminished breath sounds, prolonged expiratory phase. No wheeze or rhonchi. CARDIOVASCULAR: Regular rate and rhythm without murmur, gallop or rub. Heart rate is 88. ABDOMEN: Soft, without masses or megaly. EXTREMITIES: Without cyanosis, clubbing or edema. NEUROLOGIC: Grossly intact. LABORATORY DATA: From today 01/24/2018, hemoglobin 13, white count 8400, normal differential, platelets are 267,000. Sodium is 137, potassium is 4.7, bicarbonate is elevated at 35, BUN is 23, creatinine 0.7, glucose is 147. Coagulation studies, D-dimer quantitative was 0.36, which was normal. ABGs on 2 liters on 01/22/2018 shows a pO2 of 74, pH of 7.42, pCO2 of 47, bicarbonate was 32 at that time with a sat of 94%. Chest x-ray shows COPD, hyperinflation, significant pulmonary artery enlargement. I do not have a recent echo on her, I think her previous pressures were in the 50-60 range as an outpatient. Also, spirometry as an outpatient, FEV1 was 0.4 liters with an FVC of 1.5 liters baseline consistent with very severe obstructive defect. FEV1 is about 20% of predicted. IMPRESSION: Very severe chronic obstructive pulmonary disease, oxygen dependent, may become steroid dependent. PLAN: Continue on with the current medications . She can go home today on 4 liters; if she ambulates, she can go to 5 or 6 liters. lead case manager got her new concentrator that goes up to 8-10 liters at home. She can use that in case she needs to increase her concentrator much. She has been very good with her own pulmonary rehab and still walks on a treadmill at home. [place] [address] CONSULTATION Name: PRICILA YOUNG Room: [address] IN [facility].#: [id number] Admission: 01/19/18 Attend Phys: Sussy Swain MD Discharge: 01/24/18 Date of : 55 Report #: [id number] visit with me in 2 months. She has previously been a DNR/DNI, I have to reevaluate that with her. Her prognosis is quite guarded. We will see what we can do to keep her out of the hospital. The next time, I told her to please call me in the office a couple of days prior and we will see if can get her some antibiotics and steroids at home and save her a trip to the hospital. Overall, guarded prognosis. We will check some spirometry in the future. V/Q scan was low probability. There is no evidence of pulmonary emboli noted. Thanks again for allowing us to participate in this lady's care. <ELECTRONICALLY SIGNED> By: Dario Wallis MD 01/25/18 1010 1141 1906Antopal Wallis MD /nt
== END 2018-01-24 16:35 | disposition home or self-care (01) | DRG 177 ==
LOC: M.ERS 09:32 → M.TBA-ER 10:42 → M.2W 10:42
PROVIDERS: Emergency Medicine Emergency Medical Services; Family Medicine; ADMIT Internal Medicine
DX: J15.6 Pneumonia due to other Gram-negative bacteria (principal); J96.21 Acute and chronic respiratory failure with hypoxia; J96.22 Acute and chronic respiratory failure with hypercapnia; R65.11 Systemic inflammatory response syndrome (SIRS) of non-infectious origin with acute organ dysfunction; J44.1 Chronic obstructive pulmonary disease with (acute) exacerbation; J44.0 Chronic obstructive pulmonary disease with (acute) lower respiratory infection; B37.9 Candidiasis, unspecified; I10 Essential (primary) hypertension; F41.9 Anxiety disorder, unspecified; Z99.81 Dependence on supplemental oxygen; Z90.49 Acquired absence of other specified parts of digestive tract; Z87.891 Personal history of nicotine dependence; Z79.51 Long term (current) use of inhaled steroids; Z79.82 Long term (current) use of aspirin; Z79.899 Other long term (current) drug therapy; Z88.1 Allergy status to other antibiotic agents; Z88.2 Allergy status to sulfonamides; Z82.49 Family history of ischemic heart disease and other diseases of the circulatory system; Z82.5 Family history of asthma and other chronic lower respiratory diseases; Z80.3 Family history of malignant neoplasm of breast

== ENCOUNTER 2018-04-16 14:16 | Inpatient (IN) | payer MEDICARE ==
[~2018-04-16] VITALS: Ht 154.9 cm; Wt 65.3 kg
[~2018-04-16 14:16] MED LIST changes: +NYSTATIN100000 UNI PO; +OXYGEN MISCELL; +STOOL SOFTENER1 EAC2 PO; +TUMS PO; +VIT C-ROSE HIP500 MG PO
[2018-04-16 14:21] VITALS: BP 153/79
[2018-04-16 14:38] LABS: ABSOLUTE BASOPHILS 0.1 thou/uL (0.0-0.2); ABSOLUTE EOSINOPHILS 0.1 thou/uL (0.0-0.7); ABSOLUTE LYMPHOCYTES 1.4 thou/uL (0.8-5.3); ABSOLUTE MONOCYTES 0.7 thou/uL (0.0-1.2); ABSOLUTE NEUTROPHILS 7.5 thou/uL (1.6-8.1); BASOPHILS 0.8 %; EOSINOPHILS 0.8 %; HEMATOCRIT 42.1 % (37.0-47.0); HEMOGLOBIN 14.1 gm/dL (12.0-15.0); LYMPHOCYTES 14.2 %; MCH 30.4 pg (26.0-34.0); MCHC 33.4 g/dL (28.0-37.0); MCV 91.1 fL (80.0-100.0); MONOCYTES 7.3 %; MPV 7.8 fl. (7.2-11.1); NUCLEATED RBCS 0 /100WBC; PLATELET COUNT* 277 thou/uL (150-400); POLYS 76.9 %; RBC 4.62 mil/uL (4.20-5.00); RDW-CV 13.4 % (10.5-14.5); WBC 9.7 thou/uL (4.0-11.0)
[2018-04-16 14:46] LABS: ANION GAP 6 mmol/L (7-16); BUN 13 mg/dL (7-18); CALCIUM 8.6 mg/dL (8.5-10.1); CHLORIDE 98 mmol/L (98-107); CO2 34 mmol/L (21-32); CREATININE 0.8 mg/dL (0.6-1.3); GLUCOSE 101 mg/dL (70-99); POTASSIUM 3.5 mmol/L (3.5-5.1); SODIUM 138 mmol/L (136-145)
[2018-04-16 14:47] LABS: APTT 26.9 Seconds (25.0-31.3)
[2018-04-16 14:50] LABS: BE 1.4 mmol/L (-2 to +3); HCO3 26.5 mmol/L (22.0-26.0); PCO2 43.6 mmHg (35.0-45.0); PO2 73.5 mmHg (75.0-100.0); pH 7.402 (7.340-7.450)
[2018-04-16 15:01] LABS: ALKALINE PHOSPHATASE 67 U/L (46-116); LIPASE 144 U/L (73-393); MAGNESIUM 1.8 mg/dL (1.8-2.4); NT-PRO BRAIN NAT PEPTIDE 101 pg/mL (<300); SGOT 31 U/L (15-37); SGPT 38 U/L (30-65); TOTAL BILIRUBIN 0.7 mg/dL (<0.1-1.0); TOTAL PROTEIN 7.1 g/dL (6.4-8.2); TROPONIN-I LEVEL <0.06 ng/mL (<0.06)
[2018-04-16 15:53] VITALS: BP 102/65
[2018-04-16 19:40] VITALS: BP 114/64
[2018-04-17] VITALS: BP 109/61
[2018-04-17 04:40] LABS: HEMATOCRIT 39.8 % (37.0-47.0); HEMOGLOBIN 13.3 gm/dL (12.0-15.0); MCH 30.3 pg (26.0-34.0); MCHC 33.3 g/dL (28.0-37.0); MCV 90.7 fL (80.0-100.0); MPV 7.9 fl. (7.2-11.1); RBC 4.39 mil/uL (4.20-5.00); RDW-CV 13.2 % (10.5-14.5); WBC 5.8 thou/uL (4.0-11.0)
[2018-04-17 04:53] LABS: ALBUMIN 3.4 g/dL (3.4-5.0); ALKALINE PHOSPHATASE 59 U/L (46-116); ANION GAP 5 mmol/L (7-16); BUN 18 mg/dL (7-18); CALCIUM 8.6 mg/dL (8.5-10.1); CHLORIDE 100 mmol/L (98-107); CO2 34 mmol/L (21-32); CREATININE 0.8 mg/dL (0.6-1.3); GLUCOSE 153 mg/dL (70-99); MAGNESIUM 1.9 mg/dL (1.8-2.4); SGOT 23 U/L (15-37); SGPT 33 U/L (30-65); SODIUM 139 mmol/L (136-145); TOTAL BILIRUBIN 0.3 mg/dL (<0.1-1.0); TOTAL PROTEIN 6.5 g/dL (6.4-8.2); TROPONIN-I LEVEL <0.06 ng/mL (<0.06)
[2018-04-17 07:30] VITALS: BP 126/76
--- NOTE | 2018-04-17 12:56 | EKG ---
[place] [address] ELECTROCARDIOGRAM REPORT Name: PRICILA YOUNG Room: [address] ADM IN .R.#: [id number] Admission: 04/16/18 Attend Phys: Elian Vazquez, Discharge: Date of : 55 Report #: [id number] THIS REPORT FOR: //name// [facility] ED Test Date: 2018-04-16 Test Time: 14:24:37 Pat Name: PRICILA YOUNG Department: Room: [facility] Gender: F Clothes Wringer: Abiel GAMBINO : 1955 Requested By: Bhargav Ruby Order Number: [id number] MD: Luis Felipe [place] Measurements Intervals [place] Rate: 98 P: 85 UT: 154 QRS: 83 QRSD: 97 T: 25 QT: 329 QTc: 421 Interpretive Statements Sinus rhythm Ventricular premature complex Borderline right axis deviation Borderline repolarization abnormality Compared to ECG 01/19/2018 09:37:51 Ventricular premature complex(es) now present Sinus tachycardia no longer present Prolonged QT interval no longer present Electronically Signed On 04-17-2018 12:55:49 CDT by Luis Felipe Colorado [email or web address] <ELECTRONICALLY SIGNED> By: Luis Felipe [place] MD, FAC 04/17/18 1255 1424 1424 Luis Felipe [place] MD, FAC /EPI
[2018-04-17 15:57] VITALS: BP 125/76
[2018-04-17 19:30] VITALS: BP 137/79
[2018-04-18] VITALS: BP 109/67
[2018-04-18 08:00] VITALS: BP 136/68
--- NOTE | 2018-04-18 12:25 | CON ---
[address] [address] CONSULTATION Name: PRICILA YOUNG Room: [address] IN .R.#: [id number] Admission: 04/16/18 Attend Phys: Elian Vazquez, Discharge: Date of : 55 Report #: [id number] THIS REPORT FOR: //name// CC: Shaheen Vazquez DATE OF SERVICE: 04/16/2018 REFERRING PHYSICIAN: Elian Vazquez MD CHIEF COMPLAINT: Respiratory distress. HISTORY OF PRESENT ILLNESS: The patient is a 62-year-old female with known chronic obstructive airways disease of a severe degree. She is oxygen dependent. She quit smoking several years ago. She states that about a week and a half or so ago, she started to have problems, coughed up some purulent secretions. She was started on antibiotic therapy, at least had 2 rounds of that. She was not improving and therefore came to the Emergency Room. She denies hemoptysis, fever, chills, nausea, vomiting. PAST MEDICAL HISTORY: Positive for hypertension, anxiety, severe chronic obstructive airways disease, she is oxygen dependent. MEDICATIONS: Consist of oxygen therapy, montelukast, Spiriva, albuterol aerosol treatments at home. ALLERGIES: SULFAMETHOXAZOLE, ALSO TRIMETHOPRIM. FAMILY HISTORY: Not pertinent for the patient's age. SOCIAL HISTORY: A prior smoker. CURRENT MEDICATIONS: Rocephin, Solu-Medrol, oxybutynin, Protonix, montelukast, Lipitor, DuoNeb aerosol treatments, budesonide. PHYSICAL EXAMINATION: VITAL SIGNS: Blood pressure 126/76, respiratory rate 20 and nonlabored, pulse rate 99 and regular, temperature 97.7 degrees, weight 144 pounds. GENERAL APPEARANCE: Awake, alert, oriented. HEENT: Head atraumatic. Eyes: Pupils are round, equal, reactive. Sclerae and conjunctivae are clear. Throat is clear. NECK: Without adenopathy. CHEST: Reveals diminished breath sounds, markedly diminished. There are no audible wheezes, rales or rhonchi. CARDIOVASCULAR: [place] [address] CONSULTATION Name: PRICILA YOUNG Room: [address] IN [facility]#: [id number] Admission: 04/16/18 Attend Phys: Elian Vazquez, Discharge: Date of : 55 Report #: [id number] ABDOMEN: Soft. EXTREMITIES: Without edema. SKIN: Warm and dry without rash. NEUROLOGIC: Moves all 4 extremities. No lateralizing signs. LABORATORY DATA: Sodium 139, potassium 4.0, chloride 100, CO2 is 34, BUN of 18, creatinine 0.8, EGFR 73. ProBNP of 101. Hemoglobin and hematocrit are 13 and 40 with a white count of 5800. Arterial blood gas obtained on admission revealed a pH 7.40, pCO2 of 44, pO2 of 74, bicarbonate 26 while on 5 liters O2. Chest x-ray negative for any acute infiltrates. ASSESSMENT: 1. Exacerbation of chronic obstructive airways disease. 2. Oxygen-dependent chronic obstructive pulmonary disease. 3. Acute respiratory insufficiency/failure. RECOMMENDATION: Continue current treatment. Begin to taper steroids when she stabilizes subjectively. She will probably require at least another 48-72 hours of hospitalization. No new recommendations otherwise at this point. <ELECTRONICALLY SIGNED> By: Hasmukh Us MD 04/18/18 1225 1233 [id number] Us MD /nt
[2018-04-18 20:20] VITALS: BP 138/72
[2018-04-19 06:03] LABS: BE 0.9 mmol/L (-2 to +3); HCO3 25.7 mmol/L (22.0-26.0); PCO2 41.9 mmHg (35.0-45.0); pH 7.406 (7.340-7.450)
[2018-04-19 07:45] VITALS: BP 140/78
[2018-04-19] MEDS ORDERED: PREDNISONE 20 M20 MG PO (12:29)
[2018-04-19 12:32] VITALS: BP 140/78
== END 2018-04-19 13:18 | disposition home or self-care (01) | DRG 189 ==
LOC: M.ERS 14:16 → M.2W 15:00 → M.TBA-ER 15:00 → M.2W 15:51 → M.3W 04-18 19:35
PROVIDERS: Family Medicine; Internal Medicine Pulmonary Disease; ADMIT Family Medicine
DX: J96.21 Acute and chronic respiratory failure with hypoxia (principal); J44.1 Chronic obstructive pulmonary disease with (acute) exacerbation; J44.0 Chronic obstructive pulmonary disease with (acute) lower respiratory infection; J98.11 Atelectasis; B37.0 Candidal stomatitis; J20.9 Acute bronchitis, unspecified; I10 Essential (primary) hypertension; Z60.2 Problems related to living alone; F41.9 Anxiety disorder, unspecified; I27.20 Pulmonary hypertension, unspecified; T38.0X5A Adverse effect of glucocorticoids and synthetic analogues, initial encounter; Z88.2 Allergy status to sulfonamides; Z79.899 Other long term (current) drug therapy; Z79.82 Long term (current) use of aspirin; Z90.49 Acquired absence of other specified parts of digestive tract; Z80.3 Family history of malignant neoplasm of breast; Z82.49 Family history of ischemic heart disease and other diseases of the circulatory system; Z87.891 Personal history of nicotine dependence; Z99.81 Dependence on supplemental oxygen; Y92.238 Other place in hospital as the place of occurrence of the external cause

== ENCOUNTER 2018-09-30 14:00 | Inpatient (IN) | payer MEDICARE ==
[~2018-09-30] VITALS: Ht 157.5 cm; Wt 71.0 kg
[~2018-09-30 14:00] MED LIST changes: +PREDNISONE 20 M20 MG PO
[2018-09-30 14:03] VITALS: BP 122/105
[2018-09-30 14:31] LABS: ABSOLUTE BASOPHILS 0.1 thou/uL (0.0-0.2); ABSOLUTE EOSINOPHILS 0.1 thou/uL (0.0-0.7); ABSOLUTE LYMPHOCYTES 1.4 thou/uL (0.8-5.3); ABSOLUTE MONOCYTES 0.6 thou/uL (0.0-1.2); ABSOLUTE NEUTROPHILS 7.9 thou/uL (1.6-8.1); BASOPHILS 0.6 %; EOSINOPHILS 1.3 %; HEMOGLOBIN 14.4 gm/dL (12.0-15.0); LYMPHOCYTES 13.8 %; MCH 29.8 pg (26.0-34.0); MCHC 33.6 g/dL (28.0-37.0); MCV 88.6 fL (80.0-100.0); MONOCYTES 6.4 %; MPV 8.5 fl. (7.2-11.1); NUCLEATED RBCS 0 /100WBC; PLATELET COUNT* 257 thou/uL (150-400); POLYS 77.9 %; RBC 4.85 mil/uL (4.20-5.00); RDW-CV 12.9 % (10.5-14.5); WBC 10.2 thou/uL (4.0-11.0)
[2018-09-30 14:44] LABS: BE 2.5 mmol/L (-2 to +3); PCO2 47.6 mmHg (35.0-45.0); PO2 112.7 mmHg (75.0-100.0)
[2018-09-30 15:02] LABS: ALBUMIN 3.9 g/dL (3.4-5.0); ALKALINE PHOSPHATASE 75 U/L (46-116); ANION GAP 5 mmol/L (7-16); BUN 14 mg/dL (7-18); CALCIUM 9.1 mg/dL (8.5-10.1); CHLORIDE 98 mmol/L (98-107); CO2 33 mmol/L (21-32); CREATININE 0.8 mg/dL (0.6-1.3); GLUCOSE 129 mg/dL (70-99); LIPASE 146 U/L (73-393); MAGNESIUM 1.9 mg/dL (1.8-2.4); NT-PRO BRAIN NAT PEPTIDE 301 pg/mL (<300); POTASSIUM 4.2 mmol/L (3.5-5.1); SGOT 33 U/L (15-37); SGPT 38 U/L (30-65); SODIUM 136 mmol/L (136-145); TOTAL BILIRUBIN 0.8 mg/dL (<0.1-1.0); TOTAL PROTEIN 7.2 g/dL (6.4-8.2); TROPONIN-I LEVEL <0.06 ng/mL (<0.06)
--- NOTE | 2018-09-30 17:42 | 2DMMODE ---
[place] [address] 2 D/M-MODE ECHOCARDIOGRAM Name: PRICILA YOUNG Room: [place] [address] ADM IN [facility]#: [id number] Admission: 09/30/18 Attend Phys: Sussy Swain, Discharge: Date of : 55 Date of Service: 09/30/18 1742 Report #: [id number] THIS REPORT FOR: //name// APPROVED REPORT Study performed: 09/30/2018 16:57:17 EXAM: Comprehensive 2D, Doppler, and color-flow Echocardiogram Patient Location: In-Patient Room #: er Status: routine BSA: 1.66 HR: 91 bpm BP: 120/91 mmHg Rhythm: NSR Other Information Study Quality: Good Indications Dyspnea Respiratory failure 2D Dimensions IVSd: 7.65 (7-11mm) LVOT Diam: 19.63 (18-24mm) LVDd: 41.33 mm PWd: 8.99 (7-11mm) Ascending Ao: 32.11 (22-36mm) LVDs: 29.80 (25-40mm) Aortic Root: 31.80 mm Volumes Left Atrial Volume (Systole) LA ESV Index: 17.50 mL/m2 Aortic Valve AoV Peak Ryan.: 1.36 m/s AO Peak Gr.: 7.36 mmHg LVOT Max P.53 mmHg AO Mean Gr.: 3.66 mmHg LVOT Mean P.15 mmHg LVOT Max V: 1.37 m/s AO V2 VTI: 22.30 cm LVOT Mean V: 0.80 m/s SABRINA (VTI): 3.29 cm2 LVOT V1 VTI: 24.27 cm Mitral Valve E/A Ratio: 0.66 MV Decel. Time: 266.74 [place] [address] 2 D/M-MODE ECHOCARDIOGRAM Name: HANNAHPRICILA SPIKE Room: [address] IN ..#: [id number] Admission: 09/30/18 Attend Phys: Sussy Swain, Discharge: Date of : 55 Date of Service: 09/30/18 1742 Report #: [id number] MV E Max Ryan.: 0.68 m/s MV PHT: 77.35 ms MVA (PHT): 2.84 cm2 TDI E/Lateral E': 5.23 E/Medial E': 7.56 Medial E' Ryan.: 0.09 m/s Lateral E' Ryan.: 0.13 m/s Pulmonary Valve PV Peak Ryan.: 1.14 m/s PV Peak Gr.: 5.20 mmHg Tricuspid Valve RAP Estimate: 5.00 mmHg TR Peak Gr.: 33.00 mmHg RVSP: 38.00 mmHg PA Pressure: 38.00 mmHg Left Ventricle The left ventricle is normal size. There is normal LV segmental wall motion. There is normal left ventricular wall thickness. Left ventricular systolic function is normal. The left ventricular ejection fraction is within the normal range. LVEF is 60-65%. Grade I - abnormal relaxation pattern. Right Ventricle The right ventricle is normal size. The right ventricular systolic function is normal. Atria The left atrium size is normal. The right atrium size is normal. Aortic Valve The aortic valve is normal in structure. No aortic regurgitation is present. There is no aortic valvular stenosis. Mitral Valve There is mitral annular calcification. There is no mitral valve regurgitation noted. No evidence of mitral valve stenosis. Tricuspid Valve The tricuspid valve is normal in structure. Trace tricuspid regurgitation. Mild pulmonary hypertension. Pulmonic Valve The pulmonary valve is normal in structure. There [place] [address] 2 D/M-MODE ECHOCARDIOGRAM Name: PRICILA YOUNG Room: [address] IN [facility]#: [id number] Admission: 09/30/18 Attend Phys: Sussy Swain, Discharge: Date of : 55 Date of Service: 09/30/18 1742 Report #: [id number] valvular regurgitation. Great Vessels The aortic root is normal in size. IVC is normal in size and collapses >50% with inspiration. Pericardium There is no pericardial effusion. <Conclusion> The left ventricle is normal size. There is normal left ventricular wall thickness. Left ventricular systolic function is normal. The left ventricular ejection fraction is within the normal range. LVEF is 60-65%. Grade I - abnormal relaxation pattern. The right ventricle is normal size. The left atrium size is normal. The aortic valve is normal in structure. There is mitral annular calcification. There is no mitral valve regurgitation noted. No evidence of mitral valve stenosis. The tricuspid valve is normal in structure. IVC is normal in size and collapses >50% with inspiration. There is no pericardial effusion. There is normal LV segmental wall motion. <ELECTRONICALLY SIGNED> By: Raciel Enriquez MD, FACC 09/30/181741 41 41 Raciel Enriquez MD, FACC /INF
[2018-09-30 18:58] VITALS: BP 111/88
[2018-09-30] MEDS ORDERED: VITAMIN D1000 UNI1 PO (22:34)
[2018-10-01] VITALS: BP 134/69
[2018-10-01 04:08] VITALS: BP 101/59
[2018-10-01 08:40] VITALS: BP 132/72
[2018-10-01 12:00] VITALS: BP 144/82
[2018-10-01 16:00] VITALS: BP 142/87
[2018-10-01 21:00] VITALS: BP 141/81
[2018-10-02] VITALS: BP 133/79
[2018-10-02 04:00] VITALS: BP 126/72
--- NOTE | 2018-10-02 07:13 | CON ---
[address] [address] CONSULTATION Name: PRICILA YOUNG Room: [address] IN M.R.#: [id number] Admission: 09/30/18 Attend Phys: Sussy Swain MD Discharge: Date of : 55 Report #: [id number] THIS REPORT FOR: //name// CC: Sussy Little DATE OF SERVICE: 10/01/2018 ATTENDING PHYSICIAN: Sussy Swain MD PRIMARY CARE PHYSICIAN: Shaheen Little DO LOCATION: The patient is located in room 232. INDICATION FOR CONSULTATION: COPD, bronchospasm and oxygen dependent. HISTORY OF PRESENT ILLNESS: The patient is a 63-year-old female, prior smoker, who was admitted to the hospital with 5-7 day history of increasing cough or shortness of breath. The patient took a round of Augmentin at home that she had at home. She did not take any prednisone at home. Our office was not called. I have seen her in the office for the last 8 or 10 years. She has a very severe COPD with an FEV1 of about 0.6 to 0.7 with an FVC of 2.0 to 2.3 liters. She has mild hypercarbia. She has been oxygen dependent for the past 6 or 7 years with pulmonary rehabilitation. She has not been steroid dependent. She is not on Trilogy at home. She thought she had some left arm pain and anxiety. She had shortness of breath, had some dry cough, was seen in the Emergency Room, coronary artery disease and acute [place] were ruled out and she was placed on BiPAP just for work of breathing. She did have some anxiety. She is better now on 6 liters. She is normally on 4 liters at home. She did get her flu shot this fall. She does not know anybody else who has been sick or ill. No recent travel history. PAST MEDICAL HISTORY: Long history of COPD 2 or 3 exacerbations a year usually with antibiotics and/or prednisone taper, mild pulmonary artery hypertension and oxygen dependent as mentioned before. Also has a history of abdominal pain and anxiety and no significant cardiac history. No diabetes. ALLERGIES: SHE HAS ALLERGIES OR INTOLERANCE TO SULFA DRUGS. This gives her nausea and some rash. OUTPATIENT MEDICATIONS: Included albuterol nebulizers 4 times a day followed by Spiriva hand inhaler 1 puff daily, albuterol inhaler 2 puffs 4 times a day, was on montelukast 10 mg daily, multivitamins 1 tablet daily and Paxil was 20 mg daily. Finished Augmentin 5 days ago. She is on IV [place] [address] CONSULTATION Name: PRICILA YOUNG Room: [address] IN M.R.#: [id number] Admission: 09/30/18 Attend Phys: Sussy Swain MD Discharge: Date of : 55 Report #: [id number] ceftriaxone at this time. PAST SURGICAL HISTORY: Includes overactive bladder. Previous tubal ligation. She has had a sling surgery for bladder repair and appendectomy. FAMILY HISTORY: Positive for coronary artery disease in mother and grandmother and also breast cancer. SOCIAL HISTORY: Former smoker and one pack a day and she quit after [id number] history about 8 years ago. Denies alcohol or illicit drug use. Lives at home by herself. She has some daughters and granddaughters who are a good social support. Previously she has been a full code blue and short term ventilator. She does not think she wants a tracheostomy tube or PEG tube and that needs to be clarified. REVIEW OF SYSTEMS: A 14-point review of systems reviewed and negative except for pertinent positives noted in the HPI. PHYSICAL EXAMINATION: GENERAL: A 63-year-old female who is better today. She is off the BiPAP on 6 liters, saturating 94%. VITAL SIGNS: Blood pressure is 132/72, heart rate is 96, respirations 20 and temperature is 36 degrees. She is 5 feet 4 inches tall, weight 66 kilograms or 140 pounds, BMI is 27. HEENT: Unremarkable. NECK: Supple without nodes. CHEST: Shows diminished breath sounds and prolonged expiratory phase. CARDIOVASCULAR: Regular rate and rhythm without murmur, gallop or rub. Heart rate is 96. ABDOMEN: Soft without masses or megaly. EXTREMITIES: No calf tenderness. No cyanosis, clubbing or edema. NEUROLOGIC: Grossly intact. She moves all fours to commands. LABORATORY DATA: Hemoglobin is 14, white count is 10,200 and platelets are 257,000. Lymphocytes of 13%. Sodium is 136, potassium is 4.2, bicarbonate is 33 and glucose is 129. Anti-proBNP is 301. ABGs show pO2 of 112, pH of 7.39, pCO2 is 47 and bicarbonate is 29. Carboxyhemoglobin is 0.4 and that was on 50% BiPAP at 12/6. Echocardiogram shows LVEF of 60 to 65%, mild pulmonary artery hypertension with PA systolic pressure of 33. No significant valvular abnormalities. Previous spirometry from the office, FEV1 usually varies between 0.6 and 0.7 with an FVC of 2.3 liters. That has been over the last couple of years. Her FEV1 is about 25% of predicted. IMPRESSION: Very severe chronic obstructive pulmonary disease, oxygen dependent from acute bronchitis [place] [address] CONSULTATION Name: PRICILA YOUNG Room: [address] IN .R.#: [id number] Admission: 09/30/18 Attend Phys: Sussy Swain MD Discharge: Date of : 55 Report #: [id number] PLAN: Continue current medications. Continue antibiotics, steroids and nebulizer treatments. I told her next time to call me sooner, we will get a prednisone taper going quicker and see if we can get her out of bronchospasm. We have talked several times about her using either low dose of prednisone every day or every other day to see if we can keep her exacerbations down and she really does not want to do this at this time. I think it maybe help for in the future. I will talk to her about again when I see her in the office. She will need a prednisone taper and antibiotics to go home on. Chest x-ray is relatively unremarkable. Treat for acute bronchitis. She is up-to-date on her immunizations. She has been through pulmonary rehabilitation. Thanks again for allowing us to participate in this lady's care. <ELECTRONICALLY SIGNED> By: Dario Wallis MD 10/02/18 0713 1130 [id number] Wallis MD /claudia
[2018-10-02 08:00] VITALS: BP 131/55
[2018-10-02 12:00] VITALS: BP 151/101
--- NOTE | 2018-10-02 14:59 | EKG ---
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 : 1955 Requested By: Kirby Ashby Order Number: [id number] MD: Venkata Jimenez Measurements Intervals [place] Rate: 108 P: 84 RI: 124 QRS: 83 QRSD: 88 T: 56 QT: 319 QTc: 428 Interpretive Statements Sinus tachycardia Borderline right axis deviation Compared to ECG 04/16/2018 14:24:37 Sinus rhythm no longer present Ventricular premature complex(es) no longer present Electronically Signed On 10-02-2018 14:59:43 CDT by Venkata Jimenez [email or web address] <ELECTRONICALLY SIGNED> By: Venkata Jimenez MD, FACC 10/02/18 1459 1407 1407 Venkata Jimenez MD, FAC /EPI
[2018-10-02 16:00] VITALS: BP 169/94
[2018-10-02 20:00] VITALS: BP 143/94
[2018-10-03 05:11] LABS: HEMATOCRIT 37.8 % (37.0-47.0); HEMOGLOBIN 12.6 gm/dL (12.0-15.0); MCH 29.8 pg (26.0-34.0); MCHC 33.3 g/dL (28.0-37.0); MCV 89.5 fL (80.0-100.0); MPV 7.4 fl. (7.2-11.1); RBC 4.22 mil/uL (4.20-5.00); RDW-CV 13.6 % (10.5-14.5); WBC 9.6 thou/uL (4.0-11.0)
[2018-10-03 06:11] LABS: PCO2 46.4 mmHg (35.0-45.0); PO2 79.7 mmHg (75.0-100.0)
[2018-10-03 06:12] LABS: CALCIUM 8.3 mg/dL (8.5-10.1); CREATININE 0.9 mg/dL (0.6-1.3); MAGNESIUM 2.2 mg/dL (1.8-2.4); POTASSIUM 4.5 mmol/L (3.5-5.1)
[2018-10-03 08:00] VITALS: BP 153/99
[2018-10-03 12:35] VITALS: BP 152/104
[2018-10-03 16:49] VITALS: BP 161/94
[2018-10-03 20:00] VITALS: BP 156/88
[2018-10-04 04:00] VITALS: BP 136/84
[2018-10-04 08:50] VITALS: BP 150/87
[2018-10-04 16:15] VITALS: BP 163/95
[2018-10-04 22:00] VITALS: BP 164/99
[2018-10-04 22:02] VITALS: BP 170/104
[2018-10-04 22:10] VITALS: BP 164/99
[2018-10-05 08:00] VITALS: BP 146/94
[2018-10-05] MEDS ORDERED: PREDNISONE 10 M10 MG PO (10:18)
[2018-10-05] MEDS ORDERED: IPRAT-ALBUT 0.5-3 ML INH (10:18)
[2018-10-05] MEDS ORDERED: CEFDINIR300 MG PO (10:18)
[2018-10-05] MEDS ORDERED: FLUCONAZOLE 10100 MG PO (10:18)
[2018-10-05 16:16] VITALS: BP 141/56
[2018-10-05 20:00] VITALS: BP 174/97
[2018-10-06 08:16] VITALS: BP 149/75
[2018-10-06 10:43] VITALS: BP 149/75
[2018-10-06 13:09] VITALS: BP 149/75
== END 2018-10-06 11:00 | disposition home or self-care (01) | DRG 189 ==
LOC: M.ERS 14:00 → M.TBA-ER 15:37 → M.2W 15:37 → M.ORTHSURG 10-04 23:00
PROVIDERS: Emergency Medicine Emergency Medical Services; ADMIT Internal Medicine
DX: J96.22 Acute and chronic respiratory failure with hypercapnia (principal); J44.0 Chronic obstructive pulmonary disease with (acute) lower respiratory infection; R65.10 Systemic inflammatory response syndrome (SIRS) of non-infectious origin without acute organ dysfunction; I27.20 Pulmonary hypertension, unspecified; J20.9 Acute bronchitis, unspecified; J96.21 Acute and chronic respiratory failure with hypoxia; I10 Essential (primary) hypertension; F41.9 Anxiety disorder, unspecified; Z90.49 Acquired absence of other specified parts of digestive tract; Z88.2 Allergy status to sulfonamides; Z88.8 Allergy status to other drugs, medicaments and biological substances; Z87.891 Personal history of nicotine dependence; Z82.49 Family history of ischemic heart disease and other diseases of the circulatory system; Z80.3 Family history of malignant neoplasm of breast; Z99.81 Dependence on supplemental oxygen

== ENCOUNTER 2018-12-31 19:23 | Inpatient (IN) | payer MEDICARE ==
[~2018-12-31] VITALS: Ht 157.5 cm; Wt 65.3 kg
[~2018-12-31 19:23] MED LIST changes: +FLUCONAZOLE 10100 MG PO; +IPRAT-ALBUT 0.5-3 ML INH; +VITAMIN D1000 UNI1 PO
[2018-12-31 19:35] VITALS: BP 144/66
[2018-12-31 19:56] LABS: BE -1.5 mmol/L (-2 to +3); pH 7.313 (7.340-7.450)
[2018-12-31 19:57] LABS: ABSOLUTE BASOPHILS 0.1 thou/uL (0.0-0.2); ABSOLUTE EOSINOPHILS 0.1 thou/uL (0.0-0.7); ABSOLUTE LYMPHOCYTES 1.9 thou/uL (0.8-5.3); ABSOLUTE MONOCYTES 0.7 thou/uL (0.0-1.2); ABSOLUTE NEUTROPHILS 7.6 thou/uL (1.6-8.1); BASOPHILS 0.8 %; EOSINOPHILS 0.6 %; HEMATOCRIT 44.9 % (37.0-47.0); HEMOGLOBIN 14.6 gm/dL (12.0-15.0); LYMPHOCYTES 18.2 %; MCH 29.3 pg (26.0-34.0); MCHC 32.6 g/dL (28.0-37.0); MCV 89.6 fL (80.0-100.0); MONOCYTES 6.9 %; MPV 8.2 fl. (7.2-11.1); NUCLEATED RBCS 0 /100WBC; PLATELET COUNT* 317 thou/uL (150-400); POLYS 73.5 %; RBC 5.01 mil/uL (4.20-5.00); RDW-CV 13.4 % (10.5-14.5); WBC 10.4 thou/uL (4.0-11.0)
[2018-12-31 19:58] LABS: PCO2 51.4 mmHg (35.0-45.0)
[2018-12-31 19:59] LABS: PO2 155.2 mmHg (75.0-100.0)
[2018-12-31 20:01] LABS: ANION GAP 10 mmol/L (7-16); BUN 16 mg/dL (7-18); CALCIUM 9.4 mg/dL (8.5-10.1); CHLORIDE 100 mmol/L (98-107); CO2 28 mmol/L (21-32); CREATININE 0.9 mg/dL (0.6-1.3); GLUCOSE 166 mg/dL (70-99); SODIUM 138 mmol/L (136-145)
[2018-12-31 20:04] LABS: PROTIME 10.4 Seconds (9.20-11.50)
[2018-12-31 20:13] LABS: ALKALINE PHOSPHATASE 70 U/L (46-116); LIPASE 121 U/L (73-393); NT-PRO BRAIN NAT PEPTIDE 2973 pg/mL (<300); SGOT 26 U/L (15-37); SGPT 28 U/L (30-65); TOTAL BILIRUBIN 0.8 mg/dL (<0.1-1.0); TOTAL PROTEIN 6.9 g/dL (6.4-8.2); TROPONIN-I LEVEL <0.06 ng/mL (<0.06)
[2018-12-31 22:45] VITALS: BP 131/70
--- NOTE | 2018-12-31 22:45 | NUR ---
PT ADMITTED TO FLOOR PER CART ACCOMPANIED BY ER STAFF AND FAMILY WITH BELONGINGS, ORIENTED TO ROOM AND CALL LITE. AMBULATES WITH STEADY GAIT FROM CART TO BED, COYLE. O2 6L SAT 94%. AOX4. HISTORY OBTAINED AND ASSESSMENT PERFORMED. MED REC EXAMINED. RAC SL, FLUSHES EASILY. PT REQUESTING NIGHT HOME MEDS, MESSAGE TO BE SENT TO DR. GOLDY COOPER. SEE ADMIT NOTES. DENIES FURTHER NEEDS AT THIS TIME. WILL CONTINUE TO MONITOR AND PROVIDE CARES NEEDED.
[2018-12-31] MEDS ORDERED: PROTONIX40 M1 PO (23:17)
[2019-01-01 04:00] VITALS: BP 100/46
[2019-01-01 04:42] LABS: HEMATOCRIT 41.6 % (37.0-47.0); HEMOGLOBIN 13.8 gm/dL (12.0-15.0); MCH 29.7 pg (26.0-34.0); MCHC 33.3 g/dL (28.0-37.0); MCV 89.3 fL (80.0-100.0); MPV 8.4 fl. (7.2-11.1); NUCLEATED RBCS 0 /100WBC; PLATELET COUNT* 270 thou/uL (150-400); RBC 4.66 mil/uL (4.20-5.00); RDW-CV 13.3 % (10.5-14.5); WBC 8.8 thou/uL (4.0-11.0)
--- NOTE | 2019-01-01 04:44 | NUR ---
NEW ADMIT OVERNIGHT. AOX4,UP AD GENEVA TO BR TO VOID WITHOUT DIFFICULTY ALTHOUGH SOME COYLE NOTED. TELE SR/ST. RAC SL, IV ABX GIVEN ORDERED, SOLUMEDROL. O2 6L HI BECKY NC SATS 94%. AM LABS DRAWN. PULMONARY TO CONSULT. ABLE TO USE CALL LITE AND MAKE NEEDS KNOWN, CALL LITE IN EASY REACH.
[2019-01-01 05:01] LABS: CALCIUM 8.9 mg/dL (8.5-10.1); CREATININE 0.8 mg/dL (0.6-1.3); MAGNESIUM 1.9 mg/dL (1.8-2.4); POTASSIUM 4.6 mmol/L (3.5-5.1)
[2019-01-01 06:41] LABS: ABSOLUTE LYMPHOCYTES 0.4 thou/uL (0.8-5.3); ABSOLUTE NEUTROPHILS 8.4 thou/uL (1.6-8.1); PLATELET ESTIMATE ADEQUATE
[2019-01-01 08:00] VITALS: BP 123/64
--- NOTE | 2019-01-01 10:23 | NUR ---
PT ORDERS RECEIVED AND ACKNOWLEDGED. PT INDICATES SHE IS UP AD GENEVA IN ROOM WITHOUT NOTED DIFFICULTY AND/OR INSTABILITY. PT VOICES NO CONCERNS W/ DISCHARGE TO HOME. PT DECLINES ACUTE PT SERVICES AT THIS TIME. WILL DISCHARGE PT ORDERS PER PT REQUEST.
[2019-01-01 12:00] VITALS: BP 111/75
--- NOTE | 2019-01-01 13:14 | NUR ---
ASSUMED PT CARE AT 0800. AOX4, UP WITH 2 ASSIST. TRACING AFIB, PVC, BBB ON TELE O2 SAT AT 90'S 4L NC, PT DENIES PAIN. STATES SHE FEEL BETTER TODAY. PT FOR ACCU CHECK. GENERALIZED EDEMA NOTED. PT HAS ROSALES CATH DRAINING WELL. PT ABDOMEN OBESE. LAST BM TODAY. VSS, AM ASSESSMENT CHARTED. MEDS GIVEN PER MAR. HOURLY ROUNDING. Q2 TURN. CALL LIGHT WITHIN REACH WILL CONTINUE TO MONITOR.
--- NOTE | 2019-01-01 14:19 | NUR ---
ASSUMED PT CARE AT 0800, AOX4, UP AD GENEVA. 02 SAT 90'S 6L NC. PT DENIES PAIN. PT ON CARB CONTROL DIET. LUNG SOUND DIMINISH. IV ACCESS INTACT. VSS, AM ASSESSMENT CHARTED. MEDS GIVEN PER MAR. HOURLY ROUNDING OBSERVED. WILL CONTINUE TO MONITOR.
[2019-01-01 16:00] VITALS: BP 112/64
--- NOTE | 2019-01-01 18:45 | NUR ---
PT STILL TRACING SR ON TELE. 02 SAT AT 90'S 6L. DENIES ANY PAIN. ALL NEED MET AT THIS TIME. HOURLY ROUNDING OBSERVED. CALL LIGHT WITHIN REACH. WILL CONTINUE TO MONITOR.
[2019-01-01 19:35] VITALS: BP 127/69
[2019-01-02] VITALS: BP 104/59
--- NOTE | 2019-01-02 03:57 | NUR ---
ASSUMED CARE OF PT AT 1900. PT IS ALERT AND ORIENTED. VSS. PERRLA. NO COMPLAINTS OF PAIN. NO COMPLAINTS OF SOA. PT IS ON 6 LITERS OF O2. PT IS IN SINUS RYTHM ON THE TELEMETRY. PT IS RESTING COMFORTABLY IN BED. RESPIRATIONS ARE EVEN AND NONLABORED. WILL CONTINUE TO MONITOR PT.
[2019-01-02 04:00] VITALS: BP 98/54
[2019-01-02 05:57] LABS: URINE BILIRUBIN NEGATIVE (Negative); URINE BLOOD NEGATIVE (Negative); URINE CLARITY CLEAR; URINE COLOR YELLOW; URINE GLUCOSE-RANDOM NEGATIVE (Negative); URINE KETONES NEGATIVE (Negative); URINE LEUKOCYTES-REFLEX NEGATIVE (Negative); URINE NITRITE-REFLEX NEGATIVE (Negative); URINE PROTEIN NEGATIVE (Negative); URINE UROBILINOGEN 0.2 E.U./dl (0.2-1.0)
[2019-01-02 08:11] VITALS: BP 124/77
[2019-01-02 11:30] VITALS: BP 129/75
--- NOTE | 2019-01-02 12:15 | NUR ---
VSS, ASSUMED CARE IN THE AM, ASSESSMENT PERFOREMD AND CHARTED, FALL PRECAUTIONS IN PLACE AND CALL LIGHT IN REACH, PT IS A&O4 AND IS UP AD GENEVA, TRACING SR ON THE MONITOR, PT IS ON 6L NC AND DENIES ANY PAIN, PT GOAL IS TO IMPROVE BREATHING, PT HAS FAMILY AT BEDSIDE, WILL FOLLOW WITH PLAN OF CARE,
--- NOTE | 2019-01-02 13:05 | CON ---
[address] [address] CONSULTATION Name: PRICILA YOUNG Room: [address] IN M.R.#: [id number] Admission: 12/31/18 Attend Phys: Kuldeep Zheng MD Discharge: Date of : 55 Report #: [id number] THIS REPORT FOR: //name// CC: Shaheen Zheng HISTORY OF PRESENT ILLNESS: The patient is a 63-year-old female patient with chronic respiratory failure, severe COPD at baseline, she is on 6 liter oxygen 15/02. She is not on any noninvasive ventilation at home. She presented to the hospital with increasing shortness of breath of 3-4 days duration associated with minimal wheezes and cough, also minimal. She is not producing any sputum. Apparently in the ER, she was in significant distress. She actually was in tripod position. She had to be placed on BiPAP, although during my visit, she was down to 6 liters oxygen and she told me, although she feels that BiPAP helped, but she does not like it. She estimates that she uses maybe for 1-2 hours. She denied any sick contacts. She denied any recent illnesses. Apparently, she received some Augmentin and p.o. steroids a few weeks ago through our office. She sees Dr. Wallis. She had multiple hospitalizations at this facility for recurrent chronic obstructive pulmonary disease exacerbation, last hospitalization was in September of this year. Reviewing her record indicated that she had very severe COPD, where the FEV1 was 0.7 liters at 25% predicted. FAMILY HISTORY: Positive for coronary artery disease and breast cancer. PAST SURGICAL HISTORY: Tubal ligation, sling surgery and bladder repair with appendectomy. PAST MEDICAL HISTORY: Chronic obstructive pulmonary disease, chronic respiratory failure on 6 liter oxygen, pulmonary hypertension and anxiety. ALLERGIES: SULFA. MEDICATIONS: She is currently on Advair and Spiriva, although she told me prior to that Dr. Wallis put her on Trelegy although she quit Trelegy on her own, because she thought it caused nausea. She is on Paxil. She is on Singulair, recently received Augmentin. She is on bronchodilator therapy. SOCIAL HISTORY: Ex-smoker, quit 8 years ago, she had [id number] history of smoking. REVIEW OF SYSTEMS: All systems reviewed with the patient, negative other than as mentioned above. PHYSICAL EXAMINATION: VITAL SIGNS: On examination, she is on 6 liter oxygen during my visit with saturation more than 90%. Her blood pressure is 100/46, breathing 18 [address] [place] [address] CONSULTATION Name: PRICILA YOUNG Room: [address] IN ..#: [id number] Admission: 12/31/18 Attend Phys: Kuldeep Zheng MD Discharge: Date of : 55 Report #: [id number] minute, pulse 90, afebrile. GENERAL: Lying in bed, speaks in full sentences. HEENT: Head normocephalic, atraumatic. Pupils are reactive to light. Oral cavity, moist mucous membrane. Not pale, no jaundice. External ear looks normal. Nasal cavity patent passages. NECK: Trachea is central. No palpable lymph node. Full range of movement. CHEST: Diminished air movement bilaterally, prolonged expiratory phase, some rhonchi at the bases, although rare. I did hear end-expiratory wheeze. HEART: S1, S2. No murmur. No tenderness to chest palpation. ABDOMEN: Benign, soft, lax, nontender, positive bowel sounds. No masses felt, no rebound, no rigidity. EXTREMITIES: Lower extremity: No edema, no calf tenderness. SKIN: No rash. Normal for age and race. PSYCHIATRIC: Mood and affect appropriate. Good insight and judgment. NEUROLOGIC: Moving 4 extremities spontaneously. No focal weakness. LYMPHATICS: No palpable lymph node. LABORATORY DATA: Her ABGs that was done on nonrebreather was 7.31/51/155. Her INR is 1. Her creatinine is 0.9 with a BUN of 16, potassium 4, sodium 138. BNP was elevated. Her echocardiogram during the last hospitalization showed grade 1 diastolic dysfunction with preserved ejection fraction. Her chest x-ray, no acute pathology compared to previous chest x-ray showed hyperinflation with right-sided hilar fullness, although fullness was seen on previous chest x-rays and she had a CT scan back in March, it did not show acute pathology. IMPRESSION: 1. Tloei-sc-fhzkbcy hypoxic and hypercapnic respiratory failure. 2. Chronic obstructive pulmonary disease exacerbation. The patient with chronic obstructive pulmonary disease exacerbation. She will be on steroids IV and scheduled nebulization treatments. She is currently on antibiotics, continue her home dose of Singulair. She is intolerant to BIPAP, although still weak, I would still recommend it for respiratory distress to avoid intubation. Please note the patient is supposed to be on Trelegy but she reported intolerance in the form of nausea and she went back to her Spiriva and Advair. I did advise her to contact her sap security consultant and inform him of change in her medication. [address] [address] CONSULTATION Name: PRICILA YOUNG Room: [facility] [id number] Admission: 12/31/18 Attend Phys: Kuldeep Zheng MD Discharge: Date of : 55 Report #: [id number] Anticipate a few more days of inpatient IV medication for concerned discharge. <ELECTRONICALLY SIGNED> By: Evelina Worley MD 01/02/19 1305 0838 1316Evelina Worley MD /nt
--- NOTE | 2019-01-02 13:33 | EKG ---
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: : 1955 Requested By: Yaritza Miner Order Number: [id number] MD: Raciel Enriquez Measurements Intervals [place] Rate: 120 P: 76 MN: 134 QRS: 98 QRSD: 108 T: QT: 355 QTc: 502 Interpretive Statements Sinus tachycardia Probable left atrial enlargement Right axis deviation Borderline repolarization abnormality Borderline ST elevation, anterior leads Prolonged QT interval Artifact in lead(s) I,II,aVF,V1,V2,V3,V4,V5,V6 and baseline wander in lead(s) V3 Compared to ECG 09/30/2018 14:07:38 ST (T wave) deviation now present Prolonged QT interval now present Electronically Signed On 01-02-2019 13:33:15 CDT by Raciel Enriquez [email or web address] <ELECTRONICALLY SIGNED> By: Raciel Enriquez MD, [facility] 01/02/19 1333 28 28 Raciel Enriquez MD, [facility] /EPI
--- NOTE | 2019-01-02 15:14 | NUR ---
Pt is A&O. Resides at home alone. Normally active and independent. Pt wears home o2 through [employer] and also has a nebulizer. Pt has a scooter that she uses for community distances. No hx of HH or SNF. Spoke with , Pt needs a trilogy, faxed referral to [facility] to be delivered tomorrow. Goal is home at dc, anticipate dc to home tomorrow. No needs.
[2019-01-02 16:00] VITALS: BP 142/84
[2019-01-02 19:30] VITALS: BP 144/69
[2019-01-03] VITALS: BP 105/54
--- NOTE | 2019-01-03 03:13 | NUR ---
ASSUMED CARE OF PT AT 1900. PT IS ALERT AND ORIENTED. VSS. PERRLA. NO COMPLAINTS OF PAIN. STEADY GAIT. PT REMAINS ON 2 LITERS OF O2. PT IS IN SINUS RYTHM ON THE TELEMETRY. PT IS RESTING COMFORTABLY IN BED. RESPIRATIONS ARE EVEN AND NONLABORED. WILL CONTINUE TO MONITOR PT.
[2019-01-03 04:00] VITALS: BP 148/76
[2019-01-03 05:20] LABS: ABSOLUTE LYMPHOCYTES 0.6 thou/uL (0.8-5.3); ABSOLUTE MONOCYTES 0.3 thou/uL (0.0-1.2); ABSOLUTE NEUTROPHILS 8.5 thou/uL (1.6-8.1); BASOPHILS 0.1 %; HEMATOCRIT 38.6 % (37.0-47.0); HEMOGLOBIN 13.3 gm/dL (12.0-15.0); LYMPHOCYTES 6.5 %; MCH 30.5 pg (26.0-34.0); MCHC 34.3 g/dL (28.0-37.0); MCV 88.9 fL (80.0-100.0); MONOCYTES 3.4 %; MPV 8.8 fl. (7.2-11.1); NUCLEATED RBCS 0 /100WBC; PLATELET COUNT* 248 thou/uL (150-400); RBC 4.35 mil/uL (4.20-5.00); RDW-CV 13.4 % (10.5-14.5); WBC 9.4 thou/uL (4.0-11.0)
[2019-01-03 05:31] LABS: CALCIUM 8.6 mg/dL (8.5-10.1); CREATININE 0.7 mg/dL (0.6-1.3); MAGNESIUM 2.1 mg/dL (1.8-2.4); POTASSIUM 4.4 mmol/L (3.5-5.1)
[2019-01-03 08:00] VITALS: BP 125/70
--- NOTE | 2019-01-03 09:54 | NUR ---
0730 ASSUMED CARE OF PATIENT. PLEASE SEE DOCUMENTED ASSESSMENT. NSR.
--- NOTE | 2019-01-03 10:07 | NUR ---
AMOL COME TO SEE PATIENT. PATIENT HOPES TO GO HOME TODAY
--- NOTE | 2019-01-03 10:17 | NUR ---
SAT ON 6LPM IS 94%. APRIA HERE TO TEACH PATIENT ON TRILOGY
[2019-01-03 11:30] VITALS: BP 136/76
[2019-01-03] MEDS ORDERED: LEVAQUIN 750 M750 MG PO (14:50)
[2019-01-03] MEDS ORDERED: PREDNISONE 10 M10 MG PO (14:52)
[2019-01-03 15:33] VITALS: BP 136/76
--- NOTE | 2019-01-03 15:42 | NUR ---
DISCHARGE EDUCATION DONE AND IV REMOVED
--- NOTE | 2019-01-03 15:55 | NUR ---
1550 DISMISSED TO FAMILY WITH OXYGEN ON.
== END 2019-01-03 15:50 | disposition home or self-care (01) | DRG 189 ==
LOC: M.ERS 19:23 → M.TBA-ER 21:16 → M.2W 21:16
PROVIDERS: Emergency Medicine; ADMIT Family Medicine
PROC: 5A09357 Assistance with Respiratory Ventilation, Less than 24 Consecutive Hours, Continuous Positive Airway Pressure (ICD-10-PCS; principal; 2019-01-01)
DX: J96.22 Acute and chronic respiratory failure with hypercapnia (principal); J44.1 Chronic obstructive pulmonary disease with (acute) exacerbation; J96.21 Acute and chronic respiratory failure with hypoxia; F41.9 Anxiety disorder, unspecified; I10 Essential (primary) hypertension; I27.20 Pulmonary hypertension, unspecified; K21.9 Gastro-esophageal reflux disease without esophagitis; Z99.81 Dependence on supplemental oxygen; Z87.891 Personal history of nicotine dependence; Z90.49 Acquired absence of other specified parts of digestive tract; Z79.899 Other long term (current) drug therapy; Z79.82 Long term (current) use of aspirin; Z88.2 Allergy status to sulfonamides; Z88.1 Allergy status to other antibiotic agents; Z82.49 Family history of ischemic heart disease and other diseases of the circulatory system; Z80.3 Family history of malignant neoplasm of breast

== ENCOUNTER 2019-06-27 12:54 | Emergency (ER) | payer MEDICARE ==
[~2019-06-27] VITALS: Ht 154.9 cm; Wt 59.0 kg
[2019-06-27 13:55] VITALS: BP 145/80
== END 2019-06-27 13:56 | disposition home or self-care (01) ==
LOC: M.ERS 12:54
DX: S81.811A Laceration without foreign body, right lower leg, initial encounter (principal); I10 Essential (primary) hypertension; F41.9 Anxiety disorder, unspecified; J44.9 Chronic obstructive pulmonary disease, unspecified; Z88.1 Allergy status to other antibiotic agents; Z88.2 Allergy status to sulfonamides; Z87.891 Personal history of nicotine dependence; Z98.51 Tubal ligation status; Z90.49 Acquired absence of other specified parts of digestive tract; W22.8XXA Striking against or struck by other objects, initial encounter; Y93.89 Activity, other specified; Y92.89 Other specified places as the place of occurrence of the external cause; Y99.8 Other external cause status

== ENCOUNTER 2019-08-22 08:24 | Inpatient (IN) | payer MEDICARE ==
[~2019-08-22] VITALS: Ht 157.5 cm; Wt 60.8 kg
[2019-08-22 08:29] VITALS: BP 143/56
[2019-08-22 08:55] LABS: ABSOLUTE BASOPHILS 0.1 thou/uL (0.0-0.2); ABSOLUTE EOSINOPHILS 0.1 thou/uL (0.0-0.7); ABSOLUTE LYMPHOCYTES 1.5 thou/uL (0.8-5.3); ABSOLUTE MONOCYTES 1.1 thou/uL (0.0-1.2); ABSOLUTE NEUTROPHILS 10.1 thou/uL (1.6-8.1); BASOPHILS 0.8 %; EOSINOPHILS 0.8 %; HEMATOCRIT 45.5 % (37.0-47.0); HEMOGLOBIN 15.5 gm/dL (12.0-15.0); LYMPHOCYTES 11.7 %; MCH 30.7 pg (26.0-34.0); MCV 90.3 fL (80.0-100.0); MONOCYTES 8.6 %; MPV 7.9 fl. (7.2-11.1); NUCLEATED RBCS 0 /100WBC; PLATELET COUNT* 252 thou/uL (150-400); POLYS 78.1 %; RBC 5.04 mil/uL (4.20-5.00); RDW-CV 14.2 % (10.5-14.5); WBC 12.9 thou/uL (4.0-11.0)
[2019-08-22 09:06] LABS: CALCIUM 8.5 mg/dL (8.5-10.1); CREATININE 0.9 mg/dL (0.6-1.3); POTASSIUM 4.6 mmol/L (3.5-5.1)
[2019-08-22 09:10] LABS: INFLUENZA A ANTIGEN Negative (Negative); INFLUENZA B ANTIGEN Negative (Negative)
[2019-08-22 09:10] LABS: PROTIME 10.6 Seconds (9.20-11.50)
[2019-08-22 09:21] LABS: ALBUMIN 3.6 g/dL (3.4-5.0); CK-MB MASS 4.1 ng/mL (<0.5-3.6); MAGNESIUM 1.9 mg/dL (1.8-2.4); TOTAL BILIRUBIN 1.1 mg/dL (<0.1-1.0); TOTAL PROTEIN 6.5 g/dL (6.4-8.2)
[2019-08-22 10:48] VITALS: BP 99/56
[2019-08-22 12:00] VITALS: BP 126/58
--- NOTE | 2019-08-22 12:56 | EKG ---
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 : 1955 Requested By: Bhargav Ruby Order Number: [id number] MD: Ortiz Melendrez Measurements Intervals [place] Rate: 112 P: 85 NM: 130 QRS: 98 QRSD: 82 T: QT: 300 QTc: 410 Interpretive Statements Sinus tachycardia septal infarct, age indeterminate Baseline wander in lead(s) I,II,III,aVR,aVL,aVF,V3,V4,V5,V6 Compared to ECG 12/31/2018 19:29:36 Prolonged QT interval no longer present Electronically Signed On 08-22-2019 12:55:51 SHIP RIGGER by Ortiz Melendrez [email or web address] <ELECTRONICALLY SIGNED> By: Ortiz Melendrez MD, FAC 08/22/19 1255 1 Ortiz Melendrez MD, FAC /EPI
[2019-08-22 16:00] VITALS: BP 125/79
[2019-08-22 17:07] LABS: BE 1.8 mmol/L (-2 to +3); PCO2 47.4 mmHg (35.0-45.0); PO2 68.5 mmHg (75.0-100.0); pH 7.382 (7.340-7.450)
[2019-08-22 21:09] VITALS: BP 108/70
[2019-08-23 00:06] VITALS: BP 114/75
[2019-08-23 04:18] VITALS: BP 108/48
[2019-08-23 06:56] LABS: MCHC 34.2 g/dL (28.0-37.0); MCV 90.6 fL (80.0-100.0); NUCLEATED RBCS 0 /100WBC; PLATELET COUNT* 195 thou/uL (150-400); RBC 4.31 mil/uL (4.20-5.00); RDW-CV 13.6 % (10.5-14.5); WBC 7.4 thou/uL (4.0-11.0)
[2019-08-23 07:02] LABS: HEMOGLOBIN 13.3 gm/dL (12.0-15.0)
[2019-08-23 07:11] LABS: CALCIUM 8.3 mg/dL (8.5-10.1); CREATININE 0.7 mg/dL (0.6-1.3); POTASSIUM 4.5 mmol/L (3.5-5.1)
[2019-08-23 07:21] LABS: ABSOLUTE LYMPHOCYTES 0.5 thou/uL (0.8-5.3); ABSOLUTE MONOCYTES 0.2 thou/uL (0.0-1.2); ABSOLUTE NEUTROPHILS 6.7 thou/uL (1.6-8.1); METAMYELOCYTES 1 %; PLATELET ESTIMATE ADEQUATE
[2019-08-23 11:30] VITALS: BP 133/77
--- NOTE | 2019-08-23 18:05 | CON ---
[address] [address] CONSULTATION Name: PRICILA YOUNG Room: [address] IN M.R.#: [id number] Admission: 08/22/19 Attend Phys: Josiah Durham MD Discharge: Date of : 55 Report #: [id number] THIS REPORT FOR: //name// CC: Josiah Little I was asked to see this 64-year-old lady for acute on chronic respiratory failure. HISTORY OF PRESENT ILLNESS: She does have history of 19-xbuu-jqww smoking, quit smoking about 11 years ago. She is followed by Dr. Wallis, [place] oncology physician assistant. She is on oxygen 6-8 liters during day and Trilogy at night. She has not felt well for the past few days. She has had increased shortness of breath, cough, wheezing. She has had nasal congestion. She had occasional fever and chills. She is currently on BiPAP. She feels much improved. PAST MEDICAL HISTORY: Chronic respiratory failure, hypertension, severe COPD, anxiety. PAST SURGICAL HISTORY: Status post tubal ligation, appendectomy, bladder sling. ALLERGIES: BACTRIM. MEDICATIONS: Currently she is on aspirin, Lipitor, Pulmicort, Lovenox, DuoNeb every 4 hours, Solu-Medrol 62.5 every 8 hours, Singular, Rocephin. SOCIAL HISTORY: History of 58-xlbt-texc smoking, quit smoking 11 years ago. FAMILY HISTORY: Hypertension. REVIEW OF SYSTEMS: As mentioned above, other systems otherwise negative. PHYSICAL EXAMINATION: GENERAL: She is on BiPAP. VITAL SIGNS: Her O2 saturation is 91% on 35% FiO2. She appears comfortable. O2 saturation 91%, respiratory rate 20, heart rate 94, blood pressure 108/48, temperature 36.5. HEENT: Normocephalic, atraumatic. Pupils are equal, round, reactive to light. She has BiPAP mask on. NECK: There is no lymphadenopathy or thyromegaly. CARDIOVASCULAR: Regular rate and rhythm. PMI is nondisplaced. CHEST: Inspection is normal. LUNGS: Diminished breath sounds, dullness at the bases. ABDOMEN: Soft. Bowel sounds are good. There is no mass. EXTREMITIES: There is no edema. LYMPHATICS: There is no lymphadenopathy. NEUROLOGIC: [place] [address] CONSULTATION Name: PRICILA YOUNG Room: [address]#: [id number] Admission: 08/22/19 Attend Phys: Josiah Durham MD Discharge: Date of : 55 Report #: [id number] LABORATORY DATA: I reviewed the following lab data: Chest x-ray shows COPD changes. WBC 12.9, hemoglobin 15.5, platelets 252,000. Influenza A and B negative. Sodium 140, potassium 4.6, chloride 102, CO2 of 32, BUN 16, creatinine 0.9. Lactic acid 1.8. BNP 6049. Troponin less than 0.06. ABG yesterday showed pH 7.38, pCO2 of 47, pO2 of 68 on BiPAP 06/30, rate of 16, FiO2 of 45%. IMPRESSION: 1. Acute on chronic respiratory failure secondary to acute exacerbation of chronic obstructive pulmonary disease, acute bronchitis. 2. Elevated BNP. Her previous echo showed diastolic dysfunction. 3. Hypertension. 4. Anxiety. PLAN AND RECOMMENDATIONS: 1. Titrate FiO2 to keep O2 saturation 91%. 2. Continue bronchodilator. 3. Continue BiPAP p.r.n. during day, continuously at night. 4. Inhale corticosteroid. 5. I will change Solu-Medrol to 40 mg IV every 8 hours. 6. Continue Rocephin. 7. Monitor respiratory status very closely. 8. Lovenox for DVT prophylaxis. 9. Protonix for stress ulcer prophylaxis. 10. The findings and recommendations were discussed with the patient and RN. Thank you very much for allowing me to participate in the care of this very nice lady. <ELECTRONICALLY SIGNED> By: Damien Camilo MD 08/23/19 1805 0553 [id number] Camilo MD /nt
[2019-08-23 20:49] VITALS: BP 129/74
[2019-08-24] VITALS: BP 99/62
[2019-08-24 04:00] VITALS: BP 129/79
[2019-08-24 08:30] VITALS: BP 128/68
[2019-08-24 12:00] VITALS: BP 141/77
[2019-08-24 16:00] VITALS: BP 144/88
--- NOTE | 2019-08-24 16:01 | 2DMMODE ---
[place] [address] 2 D/M-MODE ECHOCARDIOGRAM Name: PRICILA YOUNG Room: [address] IN M.R.#: [id number] Admission: 08/22/19 Attend Phys: Josiah Durham, Discharge: Date of : 55 Date of Service: 08/24/19 1600 Report #: [id number] THIS REPORT FOR: cc: Shaheen Little Lewis DO Liston, Michael J. MD [facility] ~ THIS REPORT FOR: //name// APPROVED REPORT Study performed: 08/24/2019 15:01:39 EXAM: Comprehensive 2D, Doppler, and color-flow Echocardiogram Patient Location: Bedside BSA: 0.91 HR: 104 bpm BP: 141/77 mmHg Other Information Study Quality: Good Indications Congestive Heart Failure 2D Dimensions IVSd: 8.71 (7-11mm) LVOT Diam: 16.76 (18-24mm) LVDd: 28.79 mm PWd: 7.24 (7-11mm) Ascending Ao: 35.17 (22-36mm) LVDs: 24.13 (25-40mm) Aortic Root: 21.85 mm Volumes Left Atrial Volume (Systole) LA ESV Index: 35.80 mL/m2 Aortic Valve AoV Peak Ryan.: 1.04 m/s AO Peak Gr.: 4.35 mmHg LVOT Max P.52 mmHg AO Mean Gr.: 2.30 mmHg LVOT Mean P.16 mmHg LVOT Max V: 1.06 m/s AO V2 VTI: 16.81 cm LVOT Mean V: 0.67 m/s SABRINA (VTI): 2.39 cm2 LVOT V1 VTI: 18.26 [place] [address] 2 D/M-MODE ECHOCARDIOGRAM Name: HANNAHPRICILA Room: [address] IN ..#: [id number] Admission: 08/22/19 Attend Phys: Josiah Durham, Discharge: Date of : 55 Date of Service: 08/24/19 1600 Report #: [id number] Mitral Valve E/A Ratio: 0.43 MV Decel. Time: 211.34 ms MV E Max Ryan.: 0.54 m/s MV PHT: 61.29 ms MVA (PHT): 3.59 cm2 TDI E/Lateral E': 7.71 E/Medial E': 7.71 Medial E' Ryan.: 0.07 m/s Lateral E' Ryan.: 0.07 m/s Pulmonary Valve PV Peak Ryan.: 0.89 m/s PV Peak Gr.: 3.17 mmHg Tricuspid Valve RAP Estimate: 10.00 mmHg TR Peak Gr.: 77.44 mmHg RVSP: 87.44 mmHg PA Pressure: 87.44 mmHg Left Ventricle The left ventricle is normal size. There is normal LV segmental wall motion. There is normal left ventricular wall thickness. Left ventricular systolic function is normal. LVEF is 65-70%. Grade I - abnormal relaxation pattern. Right Ventricle Right ventricle is moderately dilated. Right ventricle is mildly hypokinetic. Atria Left atrium is mildly dilated. Lipomatous hypertrophy of the interatrial septum is noted. Right atrium is moderately dilated. Aortic Valve The aortic valve is normal in structure. No aortic regurgitation is present. There is no aortic valvular stenosis. Mitral Valve The mitral valve is normal in structure. There is no mitral valve regurgitation noted. No evidence of mitral valve stenosis. Tricuspid Valve The tricuspid valve is normal in structure. Mild tricuspid regurgitation. The RVSP is 80-[place] [address] 2 D/M-MODE ECHOCARDIOGRAM Name: PRICILA YOUNG Room: [address] IN [facility]#: [id number] Admission: 08/22/19 Attend Phys: Josiah Durham, Discharge: Date of : 55 Date of Service: 08/24/19 1600 Report #: [id number] Pulmonic Valve The pulmonary valve is normal in structure. Trace pulmonic regurgitation. Great Vessels The aortic root is normal in size. IVC is normal in size and collapses >50% with inspiration. Pericardium There is no pericardial effusion. <Conclusion> The left ventricle is normal size. There is normal left ventricular wall thickness. Left ventricular systolic function is normal. LVEF is 65-70%. Grade I - abnormal relaxation pattern. Right ventricle is moderately dilated. Right ventricle is mildly hypokinetic. Left atrium is mildly dilated. Right atrium is moderately dilated. Mild tricuspid regurgitation. The RVSP is 80-85 mmHg. <ELECTRONICALLY SIGNED> By: Venkata Jimenez MD, FACC 08/24/191599 99 99 Venkata Jimenez MD, FACC /INF
[2019-08-24 20:21] VITALS: BP 130/77
[2019-08-25 00:12] VITALS: BP 106/60
[2019-08-25 05:32] VITALS: BP 140/89
[2019-08-25 05:32] LABS: ABSOLUTE LYMPHOCYTES 0.4 thou/uL (0.8-5.3); ABSOLUTE MONOCYTES 0.3 thou/uL (0.0-1.2); ABSOLUTE NEUTROPHILS 9.7 thou/uL (1.6-8.1); BASOPHILS 0.1 %; HEMATOCRIT 41.2 % (37.0-47.0); HEMOGLOBIN 13.9 gm/dL (12.0-15.0); LYMPHOCYTES 4.1 %; MCH 30.6 pg (26.0-34.0); MCHC 33.7 g/dL (28.0-37.0); MONOCYTES 2.8 %; MPV 8.8 fl. (7.2-11.1); NUCLEATED RBCS 0 /100WBC; PLATELET COUNT* 197 thou/uL (150-400); RBC 4.53 mil/uL (4.20-5.00); RDW-CV 13.9 % (10.5-14.5); WBC 10.5 thou/uL (4.0-11.0)
[2019-08-25 05:43] LABS: CALCIUM 8.4 mg/dL (8.5-10.1); CREATININE 0.9 mg/dL (0.6-1.3); POTASSIUM 4.9 mmol/L (3.5-5.1)
[2019-08-25 08:00] VITALS: BP 156/94
[2019-08-25 11:46] VITALS: BP 152/87
[2019-08-25 16:28] VITALS: BP 156/95
[2019-08-25 20:00] VITALS: BP 129/79
[2019-08-26] VITALS: BP 122/60
[2019-08-26 04:00] VITALS: BP 143/93
[2019-08-26 07:00] VITALS: BP 143/95
[2019-08-26 12:00] VITALS: BP 139/85
[2019-08-26 13:01] LABS: HEMATOCRIT 44.5 % (37.0-47.0); HEMOGLOBIN 14.7 gm/dL (12.0-15.0); MCH 30.1 pg (26.0-34.0); MCHC 33.1 g/dL (28.0-37.0); MCV 90.7 fL (80.0-100.0); RBC 4.91 mil/uL (4.20-5.00); RDW-CV 13.9 % (10.5-14.5); WBC 10.2 thou/uL (4.0-11.0)
[2019-08-26 13:12] LABS: ALBUMIN 3.6 g/dL (3.4-5.0); CALCIUM 8.1 mg/dL (8.5-10.1); CREATININE 0.9 mg/dL (0.6-1.3); POTASSIUM 4.2 mmol/L (3.5-5.1); TOTAL BILIRUBIN 0.6 mg/dL (<0.1-1.0); TOTAL PROTEIN 6.5 g/dL (6.4-8.2)
[2019-08-26 16:00] VITALS: BP 147/95
[2019-08-26 20:00] VITALS: BP 138/91
[2019-08-27 01:05] VITALS: BP 123/67
[2019-08-27 04:43] VITALS: BP 121/81
[2019-08-27 07:00] VITALS: BP 140/94
[2019-08-27 12:37] VITALS: BP 156/93
[2019-08-27 16:00] VITALS: BP 128/69
[2019-08-27 20:00] VITALS: BP 144/84
[2019-08-28 00:18] VITALS: BP 119/76
[2019-08-28 03:36] VITALS: BP 131/81
[2019-08-28 07:00] VITALS: BP 180/96
[2019-08-28] MEDS ORDERED: PREDNISONE 20 M20 MG PO (10:33)
[2019-08-28] MEDS ORDERED: CEFDINIR300 MG PO (10:33)
[2019-08-28 11:41] VITALS: BP 139/85
[2019-08-28 13:09] VITALS: BP 139/85
== END 2019-08-28 13:40 | disposition home or self-care (01) | DRG 291 ==
LOC: M.ERS 08:24 → M.2W 09:29 → M.TBA-ER 09:29 → M.2W 11:10
PROVIDERS: Family Medicine; Internal Medicine; ADMIT Internal Medicine
PROC: 5A09357 Assistance with Respiratory Ventilation, Less than 24 Consecutive Hours, Continuous Positive Airway Pressure (ICD-10-PCS; principal; 2019-08-22)
PROC: 5A09357 Assistance with Respiratory Ventilation, Less than 24 Consecutive Hours, Continuous Positive Airway Pressure (ICD-10-PCS; 2019-08-23)
PROC: 5A09357 Assistance with Respiratory Ventilation, Less than 24 Consecutive Hours, Continuous Positive Airway Pressure (ICD-10-PCS; 2019-08-26)
PROC: 5A09357 Assistance with Respiratory Ventilation, Less than 24 Consecutive Hours, Continuous Positive Airway Pressure (ICD-10-PCS; 2019-08-27)
PROC: 5A09357 Assistance with Respiratory Ventilation, Less than 24 Consecutive Hours, Continuous Positive Airway Pressure (ICD-10-PCS; 2019-08-28)
DX: I11.0 Hypertensive heart disease with heart failure (principal); J96.21 Acute and chronic respiratory failure with hypoxia; R65.11 Systemic inflammatory response syndrome (SIRS) of non-infectious origin with acute organ dysfunction; J44.1 Chronic obstructive pulmonary disease with (acute) exacerbation; J44.0 Chronic obstructive pulmonary disease with (acute) lower respiratory infection; I50.33 Acute on chronic diastolic (congestive) heart failure; J20.9 Acute bronchitis, unspecified; F41.9 Anxiety disorder, unspecified; Z90.49 Acquired absence of other specified parts of digestive tract; Z99.81 Dependence on supplemental oxygen; Z79.82 Long term (current) use of aspirin; Z79.899 Other long term (current) drug therapy; Z88.1 Allergy status to other antibiotic agents; Z88.2 Allergy status to sulfonamides; Z87.891 Personal history of nicotine dependence; Z82.49 Family history of ischemic heart disease and other diseases of the circulatory system; Z80.3 Family history of malignant neoplasm of breast

== ENCOUNTER 2019-09-20 18:01 | Inpatient (IN) | payer MEDICARE ==
[~2019-09-20] VITALS: Ht 157.5 cm; Wt 61.4 kg
[2019-09-20 18:08] VITALS: BP 128/80
[2019-09-20 18:45] LABS: HEMATOCRIT 46.4 % (37.0-47.0); HEMOGLOBIN 15.3 gm/dL (12.0-15.0); MCH 30.2 pg (26.0-34.0); MCHC 32.9 g/dL (28.0-37.0); MCV 91.7 fL (80.0-100.0); MPV 8.1 fl. (7.2-11.1); NUCLEATED RBCS 0 /100WBC; PLATELET COUNT* 265 thou/uL (150-400); RBC 5.06 mil/uL (4.20-5.00); RDW-CV 14.3 % (10.5-14.5); WBC 21.9 thou/uL (4.0-11.0)
[2019-09-20 18:55] LABS: CALCIUM 8.6 mg/dL (8.5-10.1); POTASSIUM 4.7 mmol/L (3.5-5.1)
[2019-09-20 19:06] LABS: ALBUMIN 3.6 g/dL (3.4-5.0); MAGNESIUM 1.9 mg/dL (1.8-2.4); TOTAL BILIRUBIN 1.3 mg/dL (<0.1-1.0); TOTAL PROTEIN 6.9 g/dL (6.4-8.2)
[2019-09-20 19:45] LABS: ABSOLUTE LYMPHOCYTES 2.2 thou/uL (0.8-5.3); ABSOLUTE MONOCYTES 0.4 thou/uL (0.0-1.2); ABSOLUTE NEUTROPHILS 19.3 thou/uL (1.6-8.1); PLATELET ESTIMATE ADEQUATE
[2019-09-20 20:45] VITALS: BP 96/51
[2019-09-20 20:50] VITALS: BP 106/61
[2019-09-20] MEDS ORDERED: BUSPIRONE HCL5 MG PO (22:38)
[2019-09-20] MEDS ORDERED: CALCIUM + VITA1 EACH PO (22:40)
[2019-09-20] MEDS ORDERED: VITAMIN D3250 MC1 PO (22:42)
[2019-09-21 00:22] VITALS: BP 90/62
[2019-09-21 00:58] LABS: HEMATOCRIT 37.5 % (37.0-47.0); MCH 30.3 pg (26.0-34.0); MCHC 33.3 g/dL (28.0-37.0); MPV 7.9 fl. (7.2-11.1); RBC 4.12 mil/uL (4.20-5.00); RDW-CV 13.7 % (10.5-14.5); WBC 18.1 thou/uL (4.0-11.0)
[2019-09-21 01:26] LABS: HEMOGLOBIN 12.5 gm/dL (12.0-15.0)
[2019-09-21 02:07] LABS: ALBUMIN 2.7 g/dL (3.4-5.0); CALCIUM 7.5 mg/dL (8.5-10.1); CREATININE 1.2 mg/dL (0.6-1.3); MAGNESIUM 1.8 mg/dL (1.8-2.4); PHOSPHORUS* 5.6 mg/dL (2.5-4.9); POTASSIUM 4.9 mmol/L (3.5-5.1)
[2019-09-21 04:54] VITALS: BP 91/62
[2019-09-21 08:03] VITALS: BP 94/61
[2019-09-21 12:00] VITALS: BP 113/74
[2019-09-21 13:46] LABS: BE -3.1 mmol/L (-2 to +3); PCO2 36.7 mmHg (35.0-45.0); pH 7.383 (7.340-7.450)
[2019-09-21 16:09] VITALS: BP 97/64
[2019-09-21 19:40] VITALS: BP 110/74
[2019-09-22 00:22] VITALS: BP 95/63
[2019-09-22 04:45] VITALS: BP 102/58
[2019-09-22 05:15] LABS: ABSOLUTE LYMPHOCYTES 0.3 thou/uL (0.8-5.3); ABSOLUTE MONOCYTES 0.3 thou/uL (0.0-1.2); ABSOLUTE NEUTROPHILS 12.1 thou/uL (1.6-8.1); BASOPHILS 0.1 %; HEMATOCRIT 34.9 % (37.0-47.0); HEMOGLOBIN 11.9 gm/dL (12.0-15.0); LYMPHOCYTES 2.7 %; MCH 30.5 pg (26.0-34.0); MCHC 34.3 g/dL (28.0-37.0); MCV 89.2 fL (80.0-100.0); MONOCYTES 2.4 %; MPV 8.5 fl. (7.2-11.1); NUCLEATED RBCS 0 /100WBC; PLATELET COUNT* 187 thou/uL (150-400); POLYS 94.8 %; RBC 3.91 mil/uL (4.20-5.00); RDW-CV 13.9 % (10.5-14.5); WBC 12.8 thou/uL (4.0-11.0)
[2019-09-22 05:48] LABS: ALBUMIN 2.7 g/dL (3.4-5.0); CREATININE 0.9 mg/dL (0.6-1.3); MAGNESIUM 1.9 mg/dL (1.8-2.4); PHOSPHORUS* 3.7 mg/dL (2.5-4.9); POTASSIUM 3.9 mmol/L (3.5-5.1)
[2019-09-22 08:00] VITALS: BP 111/68
[2019-09-22 11:50] VITALS: BP 102/63
[2019-09-22 16:59] VITALS: BP 111/62
[2019-09-22 20:10] VITALS: BP 110/76
[2019-09-22 21:41] LABS: URINE BILIRUBIN NEGATIVE (Negative); URINE BLOOD NEGATIVE (Negative); URINE CLARITY CLEAR; URINE COLOR YELLOW; URINE GLUCOSE-RANDOM NEGATIVE (Negative); URINE KETONES NEGATIVE (Negative); URINE LEUKOCYTES NEGATIVE (Negative); URINE NITRITE NEGATIVE (Negative); URINE PROTEIN NEGATIVE (Negative); URINE SPECIFIC GRAVITY 1.025 (1.005-1.030); URINE UROBILINOGEN 0.2 E.U./dl (0.2-1.0)
[2019-09-23] VITALS: BP 102/60
[2019-09-23 04:00] VITALS: BP 108/65
[2019-09-23 08:50] VITALS: BP 122/76
[2019-09-23 10:20] LABS: HEMATOCRIT 41.4 % (37.0-47.0); MCH 30.4 pg (26.0-34.0); MCHC 33.7 g/dL (28.0-37.0); MCV 90.3 fL (80.0-100.0); MPV 8.5 fl. (7.2-11.1); RBC 4.59 mil/uL (4.20-5.00); WBC 14.8 thou/uL (4.0-11.0)
[2019-09-23 10:29] LABS: ALBUMIN 3.3 g/dL (3.4-5.0); CALCIUM 8.6 mg/dL (8.5-10.1); CREATININE 1.1 mg/dL (0.6-1.3); MAGNESIUM 2.2 mg/dL (1.8-2.4); PHOSPHORUS* 3.3 mg/dL (2.5-4.9); POTASSIUM 3.7 mmol/L (3.5-5.1)
[2019-09-23 12:30] VITALS: BP 118/72
[2019-09-23 14:00] VITALS: BP 127/77
[2019-09-23 20:00] VITALS: BP 126/82
[2019-09-24] VITALS: BP 107/68
[2019-09-24 04:00] VITALS: BP 121/71
[2019-09-24 09:07] VITALS: BP 109/76
[2019-09-24 11:59] VITALS: BP 135/94
[2019-09-24 15:57] VITALS: BP 140/81
[2019-09-24 20:00] VITALS: BP 138/87
[2019-09-25] VITALS: BP 94/56
[2019-09-25 03:41] LABS: HEMATOCRIT 36.2 % (37.0-47.0); HEMOGLOBIN 12.3 gm/dL (12.0-15.0); MCH 30.3 pg (26.0-34.0); MCHC 34.1 g/dL (28.0-37.0); MCV 88.9 fL (80.0-100.0); MPV 8.3 fl. (7.2-11.1); RBC 4.07 mil/uL (4.20-5.00); RDW-CV 13.6 % (10.5-14.5); WBC 9.4 thou/uL (4.0-11.0)
[2019-09-25 04:00] VITALS: BP 105/67
[2019-09-25 04:10] LABS: ALBUMIN 2.6 g/dL (3.4-5.0); CALCIUM 8.2 mg/dL (8.5-10.1); MAGNESIUM 2.1 mg/dL (1.8-2.4); PHOSPHORUS* 3.2 mg/dL (2.5-4.9); POTASSIUM 3.5 mmol/L (3.5-5.1)
[2019-09-25 08:00] VITALS: BP 123/80
[2019-09-25 12:42] VITALS: BP 114/74
[2019-09-25 17:36] VITALS: BP 116/70
[2019-09-25 20:00] VITALS: BP 124/98
[2019-09-26 00:12] VITALS: BP 125/80
[2019-09-26 04:00] VITALS: BP 116/76
[2019-09-26 08:00] VITALS: BP 125/87
[2019-09-26 11:42] VITALS: BP 119/79
[2019-09-26 16:14] VITALS: BP 134/80
[2019-09-26 20:00] VITALS: BP 120/78
[2019-09-27] VITALS: BP 108/70
[2019-09-27 04:00] VITALS: BP 111/63
[2019-09-27 08:24] VITALS: BP 122/81
[2019-09-27 12:20] VITALS: BP 136/73
[2019-09-27 16:00] VITALS: BP 108/67
[2019-09-27 20:35] VITALS: BP 109/70
[2019-09-28 08:42] VITALS: BP 103/62
[2019-09-28 16:25] VITALS: BP 112/80
[2019-09-28 20:00] VITALS: BP 117/82
[2019-09-29 08:00] VITALS: BP 132/82
[2019-09-29] MEDS ORDERED: PREDNISONE 10 M10 MG PO (11:04)
[2019-09-29] MEDS ORDERED: DIFLUCAN SUS40 MG/ML PO (11:04)
--- NOTE | 2019-09-29 14:57 | EKG ---
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: : 1955 Requested By: Kirby Ashby Order Number: [id number] MD: Ortiz Melendrez Measurements Intervals [place] Rate: 122 P: 85 NM: 127 QRS: 100 QRSD: 73 T: 57 QT: 314 QTc: 448 Interpretive Statements Sinus tachycardia Right axis deviation Abnormal R-wave progression, late transition Compared to ECG 08/22/2019 08:32:26 Myocardial infarct finding no longer present Electronically Signed On 09-21-2019 9:18:09 FUNERAL HOME MANAGER by Ortiz Melendrez [email or web address] <ELECTRONICALLY SIGNED> By: Ortiz Melendrez MD, FACC 09/21/19 0918 181 17 Ortiz Melendrez MD, FAC /EPI
== END 2019-09-29 13:20 | disposition home health service (06) | DRG 871 ==
LOC: M.ERS 18:01 → M.TBA-ER 18:59 → M.2W 18:59 → M.3W 09-27 11:33
PROVIDERS: Emergency Medicine Emergency Medical Services; ADMIT Family Medicine
PROC: 5A09357 Assistance with Respiratory Ventilation, Less than 24 Consecutive Hours, Continuous Positive Airway Pressure (ICD-10-PCS; principal; 2019-09-20)
PROC: 5A09357 Assistance with Respiratory Ventilation, Less than 24 Consecutive Hours, Continuous Positive Airway Pressure (ICD-10-PCS; 2019-09-21)
PROC: 5A09357 Assistance with Respiratory Ventilation, Less than 24 Consecutive Hours, Continuous Positive Airway Pressure (ICD-10-PCS; 2019-09-22)
PROC: 5A09357 Assistance with Respiratory Ventilation, Less than 24 Consecutive Hours, Continuous Positive Airway Pressure (ICD-10-PCS; 2019-09-23)
PROC: 5A09357 Assistance with Respiratory Ventilation, Less than 24 Consecutive Hours, Continuous Positive Airway Pressure (ICD-10-PCS; 2019-09-24)
PROC: 5A09357 Assistance with Respiratory Ventilation, Less than 24 Consecutive Hours, Continuous Positive Airway Pressure (ICD-10-PCS; 2019-09-25)
PROC: 5A09357 Assistance with Respiratory Ventilation, Less than 24 Consecutive Hours, Continuous Positive Airway Pressure (ICD-10-PCS; 2019-09-26)
PROC: 5A09357 Assistance with Respiratory Ventilation, Less than 24 Consecutive Hours, Continuous Positive Airway Pressure (ICD-10-PCS; 2019-09-27)
PROC: 5A09357 Assistance with Respiratory Ventilation, Less than 24 Consecutive Hours, Continuous Positive Airway Pressure (ICD-10-PCS; 2019-09-28)
PROC: 5A09357 Assistance with Respiratory Ventilation, Less than 24 Consecutive Hours, Continuous Positive Airway Pressure (ICD-10-PCS; 2019-09-29)
DX: A41.9 Sepsis, unspecified organism (principal); J15.6 Pneumonia due to other Gram-negative bacteria; I50.33 Acute on chronic diastolic (congestive) heart failure; E43 Unspecified severe protein-calorie malnutrition; J96.21 Acute and chronic respiratory failure with hypoxia; J44.1 Chronic obstructive pulmonary disease with (acute) exacerbation; J44.0 Chronic obstructive pulmonary disease with (acute) lower respiratory infection; G47.33 Obstructive sleep apnea (adult) (pediatric); I27.20 Pulmonary hypertension, unspecified; I10 Essential (primary) hypertension; F41.9 Anxiety disorder, unspecified; Z90.49 Acquired absence of other specified parts of digestive tract; Z88.2 Allergy status to sulfonamides; Z88.8 Allergy status to other drugs, medicaments and biological substances; Z87.891 Personal history of nicotine dependence; Z82.49 Family history of ischemic heart disease and other diseases of the circulatory system; Z80.3 Family history of malignant neoplasm of breast; Z99.81 Dependence on supplemental oxygen; Z68.24 Body mass index [BMI] 24.0-24.9, adult; Z79.82 Long term (current) use of aspirin; Z79.899 Other long term (current) drug therapy

== ENCOUNTER → 2020-01-11 | Outpatient (CLI) | payer MEDICARE ==
[~2020-01-11] MED LIST changes: +BUSPIRONE HCL5 MG PO; +CALCIUM + VITA1 EACH PO; +DIFLUCAN SUS40 MG/ML PO; +VITAMIN D3250 MC1 PO
[2020-01-11 14:12] LABS: CALCIUM 8.8 mg/dL (8.5-10.1); POTASSIUM 3.9 mmol/L (3.5-5.1)
== END ==
LOC: M.LAB 13:40
PROVIDERS: ATTEND Registered Nurse
DX: I50.812 Chronic right heart failure (principal)

== ENCOUNTER 2020-02-06 10:31 | Inpatient (IN) | payer MEDICARE ==
[~2020-02-06] VITALS: Ht 154.9 cm; Wt 57.6 kg
[2020-02-06 10:40] VITALS: BP 112/73
[2020-02-06 11:20] LABS: ABSOLUTE BASOPHILS 0.1 thou/uL (0.0-0.2); ABSOLUTE LYMPHOCYTES 1.9 thou/uL (0.8-5.3); ABSOLUTE MONOCYTES 1.3 thou/uL (0.0-1.2); ABSOLUTE NEUTROPHILS 14.1 thou/uL (1.6-8.1); BASOPHILS 0.7 %; EOSINOPHILS 0.2 %; HEMATOCRIT 50.8 % (37.0-47.0); HEMOGLOBIN 16.8 gm/dL (12.0-15.0); LYMPHOCYTES 10.7 %; MCH 29.6 pg (26.0-34.0); MCV 89.6 fL (80.0-100.0); MONOCYTES 7.4 %; MPV 8.7 fl. (7.2-11.1); NUCLEATED RBCS 0 /100WBC; PLATELET COUNT* 258 thou/uL (150-400); RBC 5.67 mil/uL (4.20-5.00); RDW-CV 15.1 % (10.5-14.5); WBC 17.4 thou/uL (4.0-11.0)
[2020-02-06 11:30] LABS: CALCIUM 9.5 mg/dL (8.5-10.1); CREATININE 1.1 mg/dL (0.6-1.3)
[2020-02-06 11:31] LABS: APTT 22.2 Seconds (25.0-31.3); INR 1.1; PROTIME 11.3 Seconds (9.20-11.50)
[2020-02-06 11:40] LABS: ALBUMIN 3.4 g/dL (3.4-5.0); MAGNESIUM 2.1 mg/dL (1.8-2.4); TOTAL BILIRUBIN 1.7 mg/dL (<0.1-1.0); TOTAL PROTEIN 7.5 g/dL (6.4-8.2)
[2020-02-06 14:00] VITALS: BP 114/60
--- NOTE | 2020-02-06 15:26 | EKG ---
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 : 1955 Requested By: Bhargav Ruby Order Number: [id number] MD: Venkata Jimenez Measurements Intervals [place] Rate: 101 P: 86 TX: 122 QRS: 102 QRSD: 80 T: -34 QT: 290 QTc: 376 Interpretive Statements Sinus tachycardia Biatrial enlargement Right axis deviation Repol abnrm suggests ischemia, inferior leads Compared to ECG 09/20/2019 18:18:49 Atrial abnormality now present Early repolarization now present Possible ischemia now present Electronically Signed On 02-06-2020 15:26:43 CDT by Venkata Jimenez [email or web address] <ELECTRONICALLY SIGNED> By: Venkata Jimenez MD, FAC 02/06/20 1526 1059 1059 Venkata Jimenez MD, [facility] /EPI
[2020-02-06 16:51] VITALS: BP 90/52
[2020-02-06 18:09] LABS: BE 3.5 mmol/L (-2 to +3); PCO2 47.5 mmHg (35.0-45.0); PO2 68.6 mmHg (75.0-100.0); pH 7.405 (7.340-7.450)
[2020-02-06 20:00] VITALS: BP 92/65
[2020-02-07] VITALS: BP 92/62
[2020-02-07 04:00] VITALS: BP 100/71
[2020-02-07 04:32] LABS: HEMATOCRIT 41.9 % (37.0-47.0); MCH 29.7 pg (26.0-34.0); MCV 87.3 fL (80.0-100.0); MPV 8.8 fl. (7.2-11.1); NUCLEATED RBCS 0 /100WBC; PLATELET COUNT* 213 thou/uL (150-400); RBC 4.79 mil/uL (4.20-5.00); RDW-CV 14.9 % (10.5-14.5); WBC 9.1 thou/uL (4.0-11.0)
[2020-02-07 04:50] LABS: HEMOGLOBIN 14.2 gm/dL (12.0-15.0)
[2020-02-07 04:53] LABS: CALCIUM 8.6 mg/dL (8.5-10.1); CREATININE 1.2 mg/dL (0.6-1.3); MAGNESIUM 2.1 mg/dL (1.8-2.4)
[2020-02-07 05:51] LABS: ABSOLUTE LYMPHOCYTES 0.5 thou/uL (0.8-5.3); ABSOLUTE MONOCYTES 0.1 thou/uL (0.0-1.2); ABSOLUTE NEUTROPHILS 8.6 thou/uL (1.6-8.1); ANISOCYTOSIS 1+; OVALOCYTES 1+; PLATELET ESTIMATE ADEQUATE; POIKILOCYTOSIS 1+
[2020-02-07 05:52] LABS: LARGE PLATELETS RARE; POLYCHROMASIA 1+; SCHISTOCYTES Occasional
[2020-02-07 08:00] VITALS: BP 105/63
[2020-02-07 12:00] VITALS: BP 93/67
[2020-02-07 16:00] VITALS: BP 176/49
--- NOTE | 2020-02-07 17:25 | 2DMMODE ---
[place] [address] 2 D/M-MODE ECHOCARDIOGRAM Name: PRICILA YOUNG Room: [address] IN [facility]#: [id number] Admission: 02/06/20 Attend Phys: Josiah Durham, Discharge: Date of : 55 Date of Service: 02/07/20 1724 Report #: [id number] THIS REPORT FOR: cc: Shaheen Little,Shaheen Aguilar,Venkata Kruse MD [facility] ~ APPROVED REPORT Study performed: 02/07/2020 15:03:02 EXAM: Limited 2D Echocardiogram Patient Location: In-Patient Room #: [facility] Status: routine BSA: 1.47 HR: 106 bpm BP: 93/67 mmHg Rhythm: NSR Other Information Study Quality: Good Indications Pulmonary Hypertension Pulm HTN follow-up Tricuspid Valve RAP Estimate: 5.00 mmHg TR Peak Gr.: 71.33 mmHg RVSP: 76.00 mmHg PA Pressure: 76.00 mmHg Left Ventricle The left ventricle is normal size. There is normal LV segmental wall motion. There is normal left ventricular wall thickness. The left ventricular systolic function is normal. LVEF is >70%. Right Ventricle Right ventricle is moderately dilated. Right ventricular systolic function is moderately reduced. Atria The left atrium size is normal. Right atrium is moderately [place] [address] 2 D/M-MODE ECHOCARDIOGRAM Name: PRICILA YOUNG Room: [address] IN M.R.#: [id number] Admission: 02/06/20 Attend Phys: Josiah Durham, Discharge: Date of : 55 Date of Service: 02/07/201723 Report #: [id number] The aortic valve is normal in structure. Mitral Valve The mitral valve is normal in structure. Tricuspid Valve The tricuspid valve is normal in structure. Moderate tricuspid regurgitation. Severe pulmonary hypertension. The RVSP is 90 mmHg. Pulmonic Valve The pulmonary valve is normal in structure. Great Vessels The aortic root is normal in size. IVC is normal in size and collapses >50% with inspiration. Pericardium There is no pericardial effusion. <Conclusion> The left ventricle is normal size. There is normal left ventricular wall thickness. The left ventricular systolic function is normal. LVEF is >70%. Right ventricle is moderately dilated. Right ventricular systolic function is moderately reduced. Right atrium is moderately dilated. Moderate tricuspid regurgitation. Severe pulmonary hypertension. The RVSP is 90 mmHg. <ELECTRONICALLY SIGNED> By: Venkata Jimenez MD, [facility] 02/07/20 1724 1724 1724 Venkata Jimenez MD, FACC /INF
[2020-02-07 20:00] VITALS: BP 128/98
[2020-02-08] VITALS (7 sets, daily range): BP systolic 92–111; BP diastolic 54–71
[2020-02-08 05:13] LABS: ABSOLUTE LYMPHOCYTES 0.4 thou/uL (0.8-5.3); ABSOLUTE MONOCYTES 0.7 thou/uL (0.0-1.2); ABSOLUTE NEUTROPHILS 16.8 thou/uL (1.6-8.1); BASOPHILS 0.2 %; HEMATOCRIT 39.8 % (37.0-47.0); HEMOGLOBIN 13.4 gm/dL (12.0-15.0); LYMPHOCYTES 2.3 %; MCH 29.8 pg (26.0-34.0); MCHC 33.7 g/dL (28.0-37.0); MCV 88.4 fL (80.0-100.0); MONOCYTES 3.7 %; MPV 9.3 fl. (7.2-11.1); NUCLEATED RBCS 0 /100WBC; PLATELET COUNT* 225 thou/uL (150-400); POLYS 93.8 %; RBC 4.51 mil/uL (4.20-5.00); RDW-CV 14.9 % (10.5-14.5); WBC 17.9 thou/uL (4.0-11.0)
[2020-02-08 05:34] LABS: ALBUMIN 2.8 g/dL (3.4-5.0); CALCIUM 8.6 mg/dL (8.5-10.1); CREATININE 1.2 mg/dL (0.6-1.3); MAGNESIUM 2.2 mg/dL (1.8-2.4); POTASSIUM 3.8 mmol/L (3.5-5.1); TOTAL BILIRUBIN 0.4 mg/dL (<0.1-1.0)
--- NOTE | 2020-02-08 11:34 | CON ---
[address] [address] CONSULTATION Name: PRICILA YOUNG Room: [address] IN .R.#: [id number] Admission: 02/06/20 Attend Phys: Josiah Durham MD Discharge: Date of : 55 Report #: [id number] THIS REPORT FOR: //name// cc: Shaheen Little DO Shaheen Little DO ~ THIS REPORT FOR: //name// CC: Josiah Little DATE OF SERVICE: 02/07/2020 REQUESTED BY: Josiah Durham MD INDICATION FOR CONSULTATION: Ydmkd-[id number]-nkvqswr hypoxemic/hypercarbic respiratory failure. HISTORY OF PRESENT ILLNESS: This 64-year-old female with past medical history as mentioned below. This does include a history of chronic respiratory failure secondary to COPD. The patient usually follows with Dr. Wallis. The patient is on a Trilogy device while asleep long time. The patient also uses oxygen at 6-8 liters continuous. More recently, about a month ago, Dr. Wallis according to the patient also started her on long-term prednisone therapy. The patient reports that she has been more sick for the last week or so. She has had a cough with thick green as well as yellow sputum. She has had an increase in shortness of breath. The patient's shortness of breath is persisting in fact sputum production had reduced yesterday; however, due to persistent complaints, her family pushed her to come to this hospital yesterday and she was admitted. She says that she had some chest pain with respiration and coughing earlier when she had a significant cough. This is not a current complaint. She says she always had a clear nasal discharge, which is at baseline. She does not have a sore throat. She did have some chills earlier, but these have now subsided. She did not have a fever. There is no swelling of lower extremities. There is no calf pain. The patient has had some occasional joint pains, which remain at baseline. I asked her 12 other questions for review of systems, the patient answered to the negative for all other questions for review of systems except as mentioned above. PAST MEDICAL HISTORY: COPD with chronic hypoxemic and hypercarbic respiratory failure. She uses 6-8 liters of oxygen continuous. She uses Trilogy while asleep and has been started on long-term prednisone therapy about a month ago. The patient has had several echocardiograms performed at this hospital. The last echocardiogram from July of this year shows severe pulmonary hypertension with a pulmonary artery systolic reported to be in the range of 80-85. There is a previous echo, which is reported to [place] [address] CONSULTATION Name: PRICILA YOUNG Room: [address] IN .#: [id number] Admission: 02/06/20 Attend Phys: Josiah Durham MD Discharge: Date of : 55 Report #: [id number]; however, previous to this there has been an elevation in pulmonary artery systolic pressures in the range of 60-65. Also history of hypertension, overactive bladder, anxiety, tubal ligation, appendectomy, bladder sling surgery. SOCIAL HISTORY: There is an extensive history of smoking, she has now discontinued. There is no known history of heavy alcohol use or illegal drug use. CURRENT MEDICATIONS: List is in [place], reviewed. HOME MEDICATIONS: List also in [place] reviewed. FAMILY HISTORY: There is no pertinent family history. ALLERGIES: THE PATIENT IS REPORTED TO BE ALLERGIC TO BACTRIM. PHYSICAL EXAMINATION: GENERAL: She is alert, awake and oriented, does not appear to be in any distress at this time. VITAL SIGNS: Has a pulse of 96 and a blood pressure of 105/63. She is oxygenating around 92-93%. She is on 8 liters oxygen via nasal cannula, respiratory rate is mildly elevated to 20. She is afebrile with a temperature of 36.1. Body mass index is on the lower side at 20.8. HEENT: Head is normocephalic and atraumatic. Pupils are equal and reactive. There is no throat erythema. There is no thrush in her throat. NECK: Does not show raised JVP, asymmetry, mass or lymph nodes. CHEST: Symmetrical expansion on inspection and palpation. On auscultation, breath sounds are bilaterally equal, but decreased, expirations are prolonged. There are minimal end expiratory wheezes. HEART: Regular. There is no murmur. ABDOMEN: Soft and nontender. EXTREMITIES: Lower extremities show no edema, no calf tenderness. SKIN: Dry and intact. NEUROLOGICAL: Moves all extremities bilaterally equally and spontaneously with no focal deficit identified. LABORATORY DATA: The patient's chest x-ray from yesterday as well as today are reviewed. There are bilateral basilar infiltrates, more on the right than the left. Right-sided infiltrate looks slightly larger on the x-ray today. However, this may be due to technique. I had D-dimer performed last night, which came back elevated. Therefore, we performed venous Dopplers, these are negative. COVID-19 screen by antigen is negative. The patient's CBC as well as chemistries are in [facility] and these are reviewed. Coagulation studies also in [facility] reviewed. Arterial blood gas consistent with skktl-mq-axgqtrs hypercarbic respiratory failure in [facility] reviewed. [address] [place] [address] CONSULTATION Name: PRICILA YOUNG Room: [address] IN .R.#: [id number] Admission: 02/06/20 Attend Phys: Josiah Durham MD Discharge: Date of : 55 Report #: [id number] ASSESSMENT AND PLAN: 1. Qywnz-ly-yostyoz hypoxemic and hypercarbic respiratory failure. We will continue with oxygen and we will continue with Trilogy while asleep. 2. Chronic obstructive pulmonary disease exacerbation. Agree with Solu-Medrol as well as nebulized bronchodilators as currently prescribed. 3. Pulmonary infiltrates. I ordered more cultures and serologies. Agree with continuing ceftriaxone. 4. Severe pulmonary hypertension. See discussion regarding previous echocardiograms as above. We would go ahead and obtain a repeat echo. I would also go ahead and repeat a CTA chest. Risks of performing a CTA chest including an allergic reaction as well as nephrotoxicity were explained to the patient. The patient has previously tolerated IV dye without problems. We will keep her well hydrated today and I may give her a small amount of IV fluids. She is receiving IV dye, but she may need diuresis later. 5. Deep vein thrombosis prophylaxis. She is on Lovenox. 6. Clostridium difficile prophylaxis. We will add Florastor. Thanks for this consultation. <ELECTRONICALLY SIGNED> By: Truman Dupree MD 02/08/20 1134 1205 1230Truman Dupree MD /nt
[2020-02-09 04:00] VITALS: BP 97/66
[2020-02-09 04:46] LABS: ABSOLUTE LYMPHOCYTES 0.3 thou/uL (0.8-5.3); ABSOLUTE MONOCYTES 0.6 thou/uL (0.0-1.2); ABSOLUTE NEUTROPHILS 15.8 thou/uL (1.6-8.1); BASOPHILS 0.1 %; HEMATOCRIT 40.6 % (37.0-47.0); HEMOGLOBIN 13.4 gm/dL (12.0-15.0); MCH 29.4 pg (26.0-34.0); MCHC 33.1 g/dL (28.0-37.0); MCV 88.8 fL (80.0-100.0); MONOCYTES 3.8 %; MPV 9.3 fl. (7.2-11.1); NUCLEATED RBCS 0 /100WBC; PLATELET COUNT* 216 thou/uL (150-400); POLYS 94.1 %; RBC 4.57 mil/uL (4.20-5.00); RDW-CV 15.3 % (10.5-14.5); WBC 16.8 thou/uL (4.0-11.0)
[2020-02-09 05:12] LABS: ALBUMIN 2.9 g/dL (3.4-5.0); CALCIUM 8.5 mg/dL (8.5-10.1); CREATININE 1.3 mg/dL (0.6-1.3); POTASSIUM 4.5 mmol/L (3.5-5.1); TOTAL BILIRUBIN 0.4 mg/dL (<0.1-1.0)
[2020-02-09 05:22] LABS: PREALBUMIN 21.7 mg/dL (18.0-35.7)
[2020-02-09 08:00] VITALS: BP 114/80
[2020-02-09 12:20] VITALS: BP 107/69
[2020-02-09 12:35] LABS: BE 3.7 mmol/L (-2 to +3); PCO2 46.5 mmHg (35.0-45.0); PO2 76.1 mmHg (75.0-100.0); pH 7.413 (7.340-7.450)
[2020-02-09 16:17] VITALS: BP 108/68
[2020-02-09 20:00] VITALS: BP 99/65
[2020-02-10] VITALS: BP 102/70
[2020-02-10 04:00] VITALS: BP 105/71
[2020-02-10 06:05] LABS: HEMATOCRIT 41.4 % (37.0-47.0); HEMOGLOBIN 13.7 gm/dL (12.0-15.0); MCH 29.4 pg (26.0-34.0); MCHC 33.1 g/dL (28.0-37.0); MCV 88.7 fL (80.0-100.0); MPV 8.8 fl. (7.2-11.1); NUCLEATED RBCS 0 /100WBC; PLATELET COUNT* 207 thou/uL (150-400); RBC 4.67 mil/uL (4.20-5.00); RDW-CV 15.2 % (10.5-14.5)
[2020-02-10 06:28] LABS: ALBUMIN 3.1 g/dL (3.4-5.0); CALCIUM 8.6 mg/dL (8.5-10.1); CREATININE 1.2 mg/dL (0.6-1.3); MAGNESIUM 2.4 mg/dL (1.8-2.4); POTASSIUM 4.6 mmol/L (3.5-5.1); TOTAL BILIRUBIN 0.6 mg/dL (<0.1-1.0); TOTAL PROTEIN 5.8 g/dL (6.4-8.2)
[2020-02-10 07:38] LABS: ABSOLUTE LYMPHOCYTES 0.6 thou/uL (0.8-5.3); ABSOLUTE MONOCYTES 0.2 thou/uL (0.0-1.2); ABSOLUTE NEUTROPHILS 11.2 thou/uL (1.6-8.1)
[2020-02-10 07:39] LABS: BURR CELLS 1+; PLATELET ESTIMATE ADEQUATE
[2020-02-10 08:07] VITALS: BP 116/75
[2020-02-10 12:00] VITALS: BP 93/71
[2020-02-10 16:00] VITALS: BP 95/69
[2020-02-10 20:00] VITALS: BP 95/69
[2020-02-11] VITALS: BP 90/67
[2020-02-11 04:12] VITALS: BP 101/73
[2020-02-11 07:48] VITALS: BP 119/74
[2020-02-11 12:00] VITALS: BP 115/83
[2020-02-11 16:00] VITALS: BP 103/73
[2020-02-11 20:20] VITALS: BP 108/70
[2020-02-12] VITALS (7 sets, daily range): BP systolic 106–137; BP diastolic 72–90
[2020-02-12 05:47] LABS: ABSOLUTE LYMPHOCYTES 0.2 thou/uL (0.8-5.3); ABSOLUTE MONOCYTES 0.5 thou/uL (0.0-1.2); ABSOLUTE NEUTROPHILS 10.6 thou/uL (1.6-8.1); HEMATOCRIT 39.3 % (37.0-47.0); HEMOGLOBIN 13.1 gm/dL (12.0-15.0); MCH 29.5 pg (26.0-34.0); MCHC 33.3 g/dL (28.0-37.0); MCV 88.4 fL (80.0-100.0); MONOCYTES 4.4 %; MPV 9.3 fl. (7.2-11.1); NUCLEATED RBCS 0 /100WBC; PLATELET COUNT* 188 thou/uL (150-400); POLYS 93.6 %; RBC 4.44 mil/uL (4.20-5.00); WBC 11.3 thou/uL (4.0-11.0)
[2020-02-12 06:10] LABS: ALBUMIN 2.8 g/dL (3.4-5.0); CALCIUM 8.1 mg/dL (8.5-10.1); CREATININE 1.2 mg/dL (0.6-1.3); POTASSIUM 4.3 mmol/L (3.5-5.1); TOTAL BILIRUBIN 0.6 mg/dL (<0.1-1.0); TOTAL PROTEIN 5.4 g/dL (6.4-8.2)
[2020-02-13 00:19] VITALS: BP 110/78
[2020-02-13 04:30] VITALS: BP 130/86
[2020-02-13 05:54] LABS: HEMATOCRIT 39.5 % (37.0-47.0); HEMOGLOBIN 13.2 gm/dL (12.0-15.0); MCH 29.4 pg (26.0-34.0); MCHC 33.4 g/dL (28.0-37.0); MPV 9.1 fl. (7.2-11.1); NUCLEATED RBCS 0 /100WBC; PLATELET COUNT* 204 thou/uL (150-400); RBC 4.49 mil/uL (4.20-5.00); RDW-CV 15.2 % (10.5-14.5); WBC 12.7 thou/uL (4.0-11.0)
[2020-02-13 06:09] LABS: CALCIUM 7.9 mg/dL (8.5-10.1); CREATININE 1.1 mg/dL (0.6-1.3); MAGNESIUM 2.2 mg/dL (1.8-2.4); POTASSIUM 4.5 mmol/L (3.5-5.1); TOTAL BILIRUBIN 0.8 mg/dL (<0.1-1.0); TOTAL PROTEIN 5.6 g/dL (6.4-8.2)
[2020-02-13 06:52] LABS: ABSOLUTE LYMPHOCYTES 0.3 thou/uL (0.8-5.3); ABSOLUTE NEUTROPHILS 12.4 thou/uL (1.6-8.1); PLATELET ESTIMATE ADEQUATE
[2020-02-13 07:32] VITALS: BP 106/79
[2020-02-13 12:13] VITALS: BP 123/70
[2020-02-13 15:43] VITALS: BP 113/68
[2020-02-13 20:00] VITALS: BP 118/80
[2020-02-14 00:38] VITALS: BP 103/71
[2020-02-14 04:26] VITALS: BP 116/83
[2020-02-14 07:32] VITALS: BP 116/86
[2020-02-14 11:38] LABS: CALCIUM 7.9 mg/dL (8.5-10.1); CREATININE 0.9 mg/dL (0.6-1.3); MAGNESIUM 2.4 mg/dL (1.8-2.4)
[2020-02-14 12:42] VITALS: BP 126/81
[2020-02-14 16:48] VITALS: BP 106/68
[2020-02-14 20:00] VITALS: BP 124/81
[2020-02-15] VITALS: BP 120/80
[2020-02-15 04:00] VITALS: BP 122/86
[2020-02-15 04:16] LABS: ABSOLUTE LYMPHOCYTES 0.4 thou/uL (0.8-5.3); ABSOLUTE MONOCYTES 0.7 thou/uL (0.0-1.2); ABSOLUTE NEUTROPHILS 12.3 thou/uL (1.6-8.1); BASOPHILS 0.3 %; HEMATOCRIT 36.8 % (37.0-47.0); HEMOGLOBIN 12.4 gm/dL (12.0-15.0); LYMPHOCYTES 2.7 %; MCH 29.5 pg (26.0-34.0); MCHC 33.7 g/dL (28.0-37.0); MCV 87.6 fL (80.0-100.0); MONOCYTES 5.3 %; MPV 8.7 fl. (7.2-11.1); NUCLEATED RBCS 0 /100WBC; PLATELET COUNT* 203 thou/uL (150-400); POLYS 91.7 %; RBC 4.21 mil/uL (4.20-5.00); RDW-CV 14.5 % (10.5-14.5); WBC 13.4 thou/uL (4.0-11.0)
[2020-02-15 04:31] LABS: ALBUMIN 3.3 g/dL (3.4-5.0); CALCIUM 8.3 mg/dL (8.5-10.1); CREATININE 0.9 mg/dL (0.6-1.3); MAGNESIUM 2.4 mg/dL (1.8-2.4); POTASSIUM 4.4 mmol/L (3.5-5.1); TOTAL PROTEIN 5.1 g/dL (6.4-8.2)
[2020-02-15 08:00] VITALS: BP 135/95
[2020-02-15 12:30] VITALS: BP 129/91
[2020-02-15 16:49] VITALS: BP 114/81
[2020-02-15 20:19] VITALS: BP 116/86
[2020-02-16] VITALS: BP 117/78
[2020-02-16 04:00] VITALS: BP 116/85
[2020-02-16 04:52] LABS: ABSOLUTE LYMPHOCYTES 0.8 thou/uL (0.8-5.3); ABSOLUTE MONOCYTES 1.5 thou/uL (0.0-1.2); ABSOLUTE NEUTROPHILS 15.1 thou/uL (1.6-8.1); BASOPHILS 0.1 %; EOSINOPHILS 0.1 %; HEMATOCRIT 39.8 % (37.0-47.0); HEMOGLOBIN 13.3 gm/dL (12.0-15.0); LYMPHOCYTES 4.4 %; MCH 29.5 pg (26.0-34.0); MCHC 33.3 g/dL (28.0-37.0); MCV 88.5 fL (80.0-100.0); MONOCYTES 8.7 %; MPV 9.3 fl. (7.2-11.1); NUCLEATED RBCS 0 /100WBC; PLATELET COUNT* 221 thou/uL (150-400); POLYS 86.7 %; RDW-CV 15.4 % (10.5-14.5); WBC 17.4 thou/uL (4.0-11.0)
[2020-02-16 05:09] LABS: ALBUMIN 3.3 g/dL (3.4-5.0); CREATININE 0.9 mg/dL (0.6-1.3); MAGNESIUM 2.3 mg/dL (1.8-2.4); POTASSIUM 4.5 mmol/L (3.5-5.1); TOTAL PROTEIN 5.4 g/dL (6.4-8.2)
[2020-02-16 05:20] LABS: CALCIUM 7.9 mg/dL (8.5-10.1)
[2020-02-16 08:00] VITALS: BP 121/87
[2020-02-16 12:00] VITALS: BP 122/80
[2020-02-16 16:00] VITALS: BP 114/80
[2020-02-16 20:00] VITALS: BP 108/71
[2020-02-17] VITALS: BP 105/60
[2020-02-17 04:00] VITALS: BP 114/82
[2020-02-17 07:59] VITALS: BP 115/87
[2020-02-17 11:55] VITALS: BP 149/98
[2020-02-17] MEDS ORDERED: PREDNISONE 20 M20 MG PO (14:02)
[2020-02-17] MEDS ORDERED: PROTONIX40 M1 PO (14:02)
[2020-02-17] MEDS ORDERED: LASIX 20 MG TAB20 MG PO (14:02)
[2020-02-17] MEDS ORDERED: NYSTATIN100000 UNI SW&SWALLOW (14:02)
== END 2020-02-17 15:30 | disposition home health service (06) | DRG 177 ==
LOC: M.ERS 10:31 → M.2W 12:09 → M.TBA-ER 12:09 → M.2W 14:22
PROVIDERS: Family Medicine; Internal Medicine Critical Care Medicine; ADMIT Internal Medicine; ATTEND Internal Medicine
PROC: 5A09357 Assistance with Respiratory Ventilation, Less than 24 Consecutive Hours, Continuous Positive Airway Pressure (ICD-10-PCS; principal; 2020-02-06)
PROC: 5A09357 Assistance with Respiratory Ventilation, Less than 24 Consecutive Hours, Continuous Positive Airway Pressure (ICD-10-PCS; 2020-02-07)
PROC: 5A09357 Assistance with Respiratory Ventilation, Less than 24 Consecutive Hours, Continuous Positive Airway Pressure (ICD-10-PCS; 2020-02-08)
PROC: 5A09357 Assistance with Respiratory Ventilation, Less than 24 Consecutive Hours, Continuous Positive Airway Pressure (ICD-10-PCS; 2020-02-10)
PROC: 5A09357 Assistance with Respiratory Ventilation, Less than 24 Consecutive Hours, Continuous Positive Airway Pressure (ICD-10-PCS; 2020-02-11)
PROC: 5A09357 Assistance with Respiratory Ventilation, Less than 24 Consecutive Hours, Continuous Positive Airway Pressure (ICD-10-PCS; 2020-02-12)
PROC: 02HV33Z Insertion of Infusion Device into Superior Vena Cava, Percutaneous Approach (ICD-10-PCS; 2020-02-12)
PROC: B548ZZA Ultrasonography of Superior Vena Cava, Guidance (ICD-10-PCS; 2020-02-12)
PROC: 5A09357 Assistance with Respiratory Ventilation, Less than 24 Consecutive Hours, Continuous Positive Airway Pressure (ICD-10-PCS; 2020-02-13)
PROC: 5A09357 Assistance with Respiratory Ventilation, Less than 24 Consecutive Hours, Continuous Positive Airway Pressure (ICD-10-PCS; 2020-02-14)
PROC: 5A09357 Assistance with Respiratory Ventilation, Less than 24 Consecutive Hours, Continuous Positive Airway Pressure (ICD-10-PCS; 2020-02-15)
PROC: 5A09357 Assistance with Respiratory Ventilation, Less than 24 Consecutive Hours, Continuous Positive Airway Pressure (ICD-10-PCS; 2020-02-16)
PROC: 5A09357 Assistance with Respiratory Ventilation, Less than 24 Consecutive Hours, Continuous Positive Airway Pressure (ICD-10-PCS; 2020-02-17)
DX: J15.5 Pneumonia due to Escherichia coli (principal); R65.11 Systemic inflammatory response syndrome (SIRS) of non-infectious origin with acute organ dysfunction; J96.21 Acute and chronic respiratory failure with hypoxia; J96.22 Acute and chronic respiratory failure with hypercapnia; J44.1 Chronic obstructive pulmonary disease with (acute) exacerbation; J44.0 Chronic obstructive pulmonary disease with (acute) lower respiratory infection; Z16.12 Extended spectrum beta lactamase (ESBL) resistance; N32.81 Overactive bladder; F41.9 Anxiety disorder, unspecified; I10 Essential (primary) hypertension; I27.20 Pulmonary hypertension, unspecified; R04.0 Epistaxis; Z66 Do not resuscitate; Z20.828 Contact with and (suspected) exposure to other viral communicable diseases; Z90.49 Acquired absence of other specified parts of digestive tract; Z99.81 Dependence on supplemental oxygen; Z79.82 Long term (current) use of aspirin; Z79.899 Other long term (current) drug therapy; Z88.2 Allergy status to sulfonamides; Z88.8 Allergy status to other drugs, medicaments and biological substances; Z87.891 Personal history of nicotine dependence

== ENCOUNTER 2020-03-02 20:26 | Emergency (ER) | payer MEDICARE ==
[~2020-03-02] VITALS: Ht 160 cm; Wt 62.6 kg
[~2020-03-02 20:26] MED LIST changes: +LASIX 20 MG TAB20 MG PO; +NYSTATIN100000 UNI SW&SWALLOW
[2020-03-02 21:05] VITALS: BP 00/00
[2020-03-02 21:10] LABS: HEMATOCRIT 43.2 % (37.0-47.0); HEMOGLOBIN 13.7 gm/dL (12.0-15.0); MCH 29.9 pg (26.0-34.0); MCHC 31.7 g/dL (28.0-37.0); MCV 94.2 fL (80.0-100.0); MPV 9.7 fl. (7.2-11.1); NUCLEATED RBCS 0 /100WBC; PLATELET COUNT* 175 thou/uL (150-400); RBC 4.59 mil/uL (4.20-5.00); RDW-CV 18.2 % (10.5-14.5); WBC 7.5 thou/uL (4.0-11.0)
[2020-03-02 21:18] LABS: APTT 27.7 Seconds (25.0-31.3); INR 1.9; PROTIME 19.2 Seconds (9.20-11.50)
[2020-03-02 21:21] LABS: ANION GAP 15 mmol/L (7-16); BUN 41 mg/dL (7-18); CALCIUM 8.5 mg/dL (8.5-10.1); CHLORIDE 106 mmol/L (98-107); CO2 23 mmol/L (21-32); CREATININE 1.5 mg/dL (0.6-1.3); GLUCOSE 56 mg/dL (70-99); POTASSIUM 5.9 mmol/L (3.5-5.1); SODIUM 144 mmol/L (136-145)
[2020-03-02 21:43] LABS: ALBUMIN 2.5 g/dL (3.4-5.0); ALKALINE PHOSPHATASE 101 U/L (46-116); LIPASE 52 U/L (73-393); MAGNESIUM 2.4 mg/dL (1.8-2.4); NT-PRO BRAIN NAT PEPTIDE > 35000 pg/mL (<300); SGPT 2286 U/L (30-65); TOTAL BILIRUBIN 3.8 mg/dL (<0.1-1.0); TOTAL PROTEIN 5.2 g/dL (6.4-8.2)
[2020-03-02 22:12] LABS: SGOT 2461 U/L (15-37)
[2020-03-02 22:23] LABS: ABSOLUTE LYMPHOCYTES 0.5 thou/uL (0.8-5.3); ABSOLUTE MONOCYTES 0.5 thou/uL (0.0-1.2); ABSOLUTE NEUTROPHILS 6.5 thou/uL (1.6-8.1); ANISOCYTOSIS 1+; PLATELET ESTIMATE ADEQUATE; POIKILOCYTOSIS 1+; POLYCHROMASIA 1+
--- NOTE | 2020-03-03 14:14 | EKG ---
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: [place] : 1955 Requested By: Bhargav Ruby Order Number: [id number] MD: Ortiz Melendrez Measurements Intervals [place] Rate: 84 P: 89 DC: 125 QRS: 96 QRSD: 107 T: 52 QT: 372 QTc: 440 Interpretive Statements Sinus rhythm Biatrial enlargement Right axis deviation Compared to ECG 02/06/2020 10:59:26 Sinus tachycardia no longer present Early repolarization no longer present Electronically Signed On 03-03-2020 14:14:19 CDT by Ortiz Melendrez [email or web address] <ELECTRONICALLY SIGNED> By: Ortiz Melendrez MD, [facility] 03/03/20 1414 21 21 Ortiz Melendrez MD, [facility] /EPI
== END 2020-03-03 05:04 ==
LOC: M.ERS 20:26
PROVIDERS: Family Medicine
DX: I46.9 Cardiac arrest, cause unspecified (principal); Z20.828 Contact with and (suspected) exposure to other viral communicable diseases; I10 Essential (primary) hypertension; J44.9 Chronic obstructive pulmonary disease, unspecified; Z87.442 Personal history of urinary calculi; Z88.1 Allergy status to other antibiotic agents; Z88.2 Allergy status to sulfonamides; Z98.51 Tubal ligation status; Z90.49 Acquired absence of other specified parts of digestive tract